=== PATIENT | female | born 1940 | race Caucasian/White ===

== ENCOUNTER 2019-02-07 08:58 | Inpatient (IN) | payer MEDICARE, SELFPAY ==
[2019-02-07] VITALS (9 sets, daily range): BP systolic 117–146; BP diastolic 67–85; PULSE 81–92; RESP 15–18; TEMP 36.6–37.4; O2SAT 93–100; BMI 16.0
--- NOTE | 2019-02-07 09:02 | ED.FALL ---
HPI - Fall General Chief Complaint: Fall Stated Complaint: GLF, Right leg pain Time Seen by Provider: 02/07/19 09:01 Source: patient and EMS Mode of arrival: EMS Limitations: no limitations History of Present Illness HPI Narrative: Patient is a 78-year-old female who presents after a ground level fall with right hip pain. She says she went to brush her hair when she fell down. No head injury she is not on any blood thinners or anti-platelet medication. She has pain every time she tries to move that leg. MD complaint: fall Onset (ago): minute(s) Fall from: standing Fall witnessed: no Place fall occurred: longterm/SNF Loss of consciousness: none Related Data Home Medications Medication Instructions Recorded Confirmed aspirin 325 mg PO DAILY #0 06/15/17 02/07/19 calcium carbonate [Tums] 500 mg PO DAILY #0 08/08/17 02/07/19 carbidopa-levodopa 1 tab PO TID 02/07/19 02/07/19 cholecalciferol (vitamin D3) 1,000 unit PO DAILY 02/07/19 02/07/19 [Vitamin D3] Allergies Allergy/AdvReac Type Severity Reaction Status Date / Time No Known Drug Allergies Allergy Verified 02/07/19 09:10 Review of Systems Review of Systems ROS Unobtainable: All systems reviewed & are unremarkable except as noted in HPI and below Constitutional Denies chills, Denies fever(s), Denies lethargy and Denies weakness Eyes Denies change in vision, Denies eye discharge, Denies irritation and Denies loss of vision ENT Ears, Nose, Mouth, and Throat: Denies change in voice, Denies neck pain and Denies sore throat Cardiovascular Denies chest pain, Denies irregular heart rhythm, Denies lightheadedness, Denies palpitations, Denies dyspnea, Denies dyspnea on exertion and Denies orthopnea Respiratory Denies cough, Denies dyspnea, Denies dyspnea on exertion and Denies wheezing Gastrointestinal Gastrointestinal: Denies abdominal pain, Denies change in bowel habits, Denies diarrhea, Denies nausea and Denies vomiting Musculoskeletal Reports as per HPI and Denies neck pain Integumentary/Breasts Denies pruritus, Denies erythema, Denies rash and Denies wounds Neurologic Denies loss of vision and Denies weakness Endocrine Denies palpitations Allergic/Immunologic Denies wheezing Exam Initial Vital Signs Initial Vital Signs: Vital Signs Pulse Rate 87 02/07/19 08:55 Respiratory Rate 18 02/07/19 08:55 Blood Pressure 117/69 02/07/19 08:55 Pulse Oximetry 94 02/07/19 08:55 GENERAL: Alert been elderly female HEENT: Head atraumatic,EOMI, pupils reactive, face symmetric CARDIOVASCULAR: Regular rate and rhythm without murmurs, rubs or gallops. RESPIRATORY: Breath sounds equal bilaterally, no wheezes rales or rhonchi. ABDOMEN: Soft, nontender. Normoactive bowel sounds all 4 quadrants. No guarding or rebound.s EXTREMITIES: Normal range of motion, no clubbing or edema. Neurovascularly intact Right hip pain. Supported underneath the knee peripheral pulses intact no significant internal external rotation. Pain to palpation NEUROLOGICAL: Alert and oriented x4.Normal gait and speech. Cranial nerves II through XII grossly intact. SKIN: Warm, dry, no laceration, no petechiae, no rashes or lesions. [facility] Medical History Parkinsons (Acute) Family History Father Heart disease Social History household members: other Smoking Status: Never smoker alcohol intake: never Family History Father Heart disease Social History household members: other Smoking Status: Never smoker alcohol intake: never Course Orders Ordered: ED Orders 02/07/19 09:01 XR hip w pel if done RT 2V Stat 02/07/19 09:50 EKG-12 Lead Stat 02/07/19 10:10 Consult to Orthopedic Surgery Stat 02/07/19 10:20 Complete Blood Count AUTO DIFF Stat Comprehensive Metabolic Panel Stat Partial Thromboplastin Time Stat Prothrombin Time INR Stat 02/07/19 10:45 UA Complete [Urinalysis and Microscopic] Stat Sodium Chloride (Normal Saline 0.9% Flush) 10 ml IV PRN PRN PRN Reason: Flush Sodium Chloride (Normal Saline 0.9% Flush) 10 ml IV BID MARYCHUY Discontinued Medications Morphine Sulfate (Morphine) 2 mg IV NOW ONE Stop: 02/07/19 09:37 Last Admin: 02/07/19 10:11 Dose: 2 mg Vital Signs - 8 hr 02/07/19 08:55 02/07/19 09:30 02/07/19 10:30 Temperature Pulse Rate 87 87 89 Respiratory Rate 18 16 18 Blood Pressure 117/69 143/85 H Blood Pressure [Left Arm] 132/74 Pulse Oximetry 94 97 100 02/07/19 11:15 Temperature 98.1 F Pulse Rate 92 H Respiratory Rate 16 Blood Pressure 146/80 H Blood Pressure [Left Arm] Pulse Oximetry 98 MDM - Fall Lab Data Attestation: I reviewed the patient's lab results. Result diagrams: 02/07/19 10:20 02/07/19 10:20 Lab Results 02/07/19 02/07/19 02/07/19 Range/Units 10:20 10:20 10:20 WBC 8.1 (4.5-11.0) X10^3/uL RBC 4.37 (4.0-5.2) X10^6/uL Hgb 13.1 (12.0-16.0) g/dL Hct 39.2 (36-46) % MCV 89.7 (80-100) fL MCH 30.0 (26-34) PG MCHC 33.4 (30-36) % RDW 14.4 (11.6-14.8) % Plt Count 267 (150-400) X10^3/uL Neut % (Auto) 81.5 H (50-75) % Lymph % (Auto) 12.9 L (25-40) % [place] % (Auto) 4.6 (3-14) % Eos % (Auto) 0.6 L (2-4) % Baso % (Auto) 0.4 (0-2) % Neut # (Auto) 6600 (9490-4806) /uL Lymph # (Auto) 1000 L (6677-6455) /uL [place] # (Auto) 400 (0-900) /uL Eos # (Auto) 100 (0-450) /uL Baso # (Auto) 0 (0-100) /uL PT 11.4 (10.1-12.7) SECONDS INR 1.0 (0.9-1.3) APTT 24 L (26.4-36.2) SECONDS Sodium 142 (137-145) mmol/L Potassium 3.9 (3.4-5.1) mmol/L Chloride 107 (98-107) mmol/L Carbon Dioxide 25 (22-32) mmol/L BUN 22 H (7-17) mg/dL Creatinine 0.60 (0.52-1.04) mg/dL Estimated GFR > 60.0 (>60) mL/min BUN/Creatinine Ratio 36.7 H (6-22) Glucose 101 (80-110) mg/dL Calcium 10.7 H (8.4-10.2) mg/dL Total Bilirubin 0.7 (0.2-1.3) mg/dL AST 26 (14-36) IU/L ALT 29 (9-52) IU/L Alkaline Phosphatase 56 (38-126) U/L Total Protein 7.6 (6.3-8.2) g/dL Albumin 4.3 (3.5-5.0) g/dL Globulin 3.3 (1.7-4.1) g/dL Albumin/Globulin Ratio 1.3 (1.0-2.8) Imaging Data hip right: Radiologist's impression: PROCEDURE: XR HIP W PEL IF DONE RT 2V INDICATIONS: pain fall TECHNIQUE: 2 views of the hip were acquired. COMPARISON: None. FINDINGS: Bones: No dislocations. There is an acute appearing subcapital femoral neck fracture, subluxed along the fracture plane superiorly by approximately 3 cm No suspicious bony lesions. The visualized pelvic ring appears intact. Soft tissues: No suspicious soft tissue calcifications or masses. IMPRESSION: Moderately displaced subcapital right femoral neck fracture. Dictated by: Haja Clemente M.D. on 02/07/2019 at 9:33 ECG Data Attestation: I personally reviewed and interpreted this ECG as follows: Prior ECG tracings: not available for review Interpretation: Normal sinus rhythm rate 84 appear interval [address] changes no T-wave inversions no priors to compare MDM Narrative Medical decision making narrative: Dr. Galloway notified and updated on patient's symptoms test results reviewed x-ray himself. Recommend keeping NPO unclear when surgery may be. Dr. Quiroga hospitalist of the patient's symptoms test results agrees admission Patient's DPOA and cousin at bedside. Aware and updated of patient's test results and need for surgery. Discharge Plan Departure Patient Disposition: Admitted As Inpatient Clinical Impression: Closed fracture of left hip Qualifiers: Encounter type: initial encounter Qualified Code(s): S72.002A - Fracture of unspecified part of neck of left femur, initial encounter for closed fracture Discharge Date/Time: 02/07/19 11:07 Interventions: ED Discharge Assessment Last Done: 02/07/19 10:30 Admit Date/Time: 02/07/19 10:39 Admit Provider: Mary Quiroga
[2019-02-07] MEDS: MORPHINE 2 MG/ML INJ IV ×2 (10:11→13:11)
[2019-02-07 10:28] LABS: Add Manual Diff / Slide Review NO; Basophils Absolute Auto 0 /uL (0-100); Basophils Percent Auto 0.4 % (0-2); Eosinophils Absolute Auto 100 /uL (0-450); Eosinophils Percent Auto 0.6 % (2-4); Hematocrit 39.2 % (36-46); Hemoglobin 13.1 g/dL (12.0-16.0); Lymphocytes Absolute Auto 1000 /uL (1100-4500); Lymphocytes Percent Auto 12.9 % (25-40); Mean Corpuscular HGB Conc 33.4 % (30-36); Mean Corpuscular Volume 89.7 fL (80-100); Monocytes Absolute Auto 400 /uL (0-900); Monocytes Percent Auto 4.6 % (3-14); Neutrophils Absolute Auto 6600 /uL (1500-7000); Neutrophils Percent Auto 81.5 % (50-75); Platelet Count 267 X10^3/uL (150-400); Red Blood Cell Count 4.37 X10^6/uL (4.0-5.2); Red Cell Distribution Width 14.4 % (11.6-14.8); White Blood Cell Count 8.1 X10^3/uL (4.5-11.0)
[2019-02-07 10:34] LABS: Prothrombin Time 11.4 SECONDS (10.1-12.7)
[2019-02-07 10:37] LABS: PTT Partial Thromboplastin Tim 24 SECONDS (26.4-36.2)
[2019-02-07 10:41] LABS: Alanine Aminotransferase 29 IU/L (9-52); Albumin 4.3 g/dL (3.5-5.0); Albumin Globulin Ratio 1.3 (1.0-2.8); Alkaline Phosphatase 56 U/L (38-126); Aspartate Aminotransferase 26 IU/L (14-36); BUN Creatinine Ratio 36.7 (6-22); Bilirubin Total 0.7 mg/dL (0.2-1.3); Blood Urea Nitrogen 22 mg/dL (7-17); Calcium 10.7 mg/dL (8.4-10.2); Carbon Dioxide 25 mmol/L (22-32); Chloride 107 mmol/L (98-107); Estimated Glomerular Filt Rate > 60.0 mL/min (>60); Globulin 3.3 g/dL (1.7-4.1); Glucose 101 mg/dL (80-110); HEMOLYSIS < 15 (0-50); Potassium 3.9 mmol/L (3.4-5.1); Sodium 142 mmol/L (137-145); Total Protein 7.6 g/dL (6.3-8.2)
--- NOTE | 2019-02-07 11:22 | PC.NURSE ---
Day shift: Pt on unit from ED at approx 1115.
[2019-02-07] MEDS: SODIUM CHLORIDE 0.9% FLUSH 10 ML IV ×2 (11:45→21:32)
--- NOTE | 2019-02-07 12:51 | P.HP_ITS ---
History of Present Illness Date Patient Seen: 02/07/19 Chief complaint: GLF, Right leg pain Narrative: The patient is an 78-year-old female who lives at [facility] who was coming her here today when she fell landing on her hip. She was evaluated in the emergency room and found to have a femoral neck fracture by report the patient was recently diagnosed with Parkinson's syndrome. She was started on low-dose Sinemet for this. The patient has had multiple falls. The falls typically occur in the morning. She is currently without complaint. She has no pain she denies shortness of breath chest pain, nausea, vomiting, headache or other symptoms. The patient was scheduled to see Dr. koroma today and unfortunately presented to the emergency room. She was seen in the emergency room and diagnosed with a right femoral neck fracture and is admitted to the hospital for definitive surgical treatment. Patient History Medical History Parkinsons (Acute) Family History Father Heart disease Social History household members: other Smoking Status: Never smoker alcohol intake: never Family & Social History Family History Father Heart disease Social History: household members other Prior Living Arrangements Assisted Living Safety & Behavioral: Feels Safe in Current Yes Environment Been Physically Hurt or No Threatened By a Person Suicidal Ideation Description None Suicide Plan Description No Plan Tobacco & Substance use: Smoking Status Never smoker alcohol intake never alcohol intake frequency 0-2 drinks per day Substance Use Type does not use Meds Home Medications Medication Instructions Recorded Confirmed Type aspirin 325 mg PO DAILY #0 06/15/17 02/07/19 History calcium carbonate [Tums] 500 mg PO DAILY #0 08/08/17 02/07/19 History carbidopa-levodopa 1 tab PO TID 02/07/19 02/07/19 History cholecalciferol (vitamin D3) 1,000 unit PO DAILY 02/07/19 02/07/19 History [Vitamin D3] Allergies Allergy/AdvReac Type Severity Reaction Status Date / Time No Known Drug Allergies Allergy Verified 02/07/19 09:10 Review of Systems Review of Systems All systems reviewed & are unremarkable except as noted in HPI and below Exam Vital Signs (past 8 hours): - 02/07/19 08:55 02/07/19 09:30 02/07/19 10:30 Temperature Pulse Rate 87 87 89 Respiratory Rate 18 16 18 Blood Pressure 117/69 143/85 H Blood Pressure [Left Arm] 132/74 Pulse Oximetry 94 97 100 02/07/19 11:15 Temperature 98.1 F Pulse Rate 92 H Respiratory Rate 16 Blood Pressure 146/80 H Blood Pressure [Left Arm] Pulse Oximetry 98 Oxygen Delivery Method Room Air Oxygen Flow Rate 0 Narrative Exam Narrative: Elderly female lying in bed in no obvious distress HEENT: Normocephalic atraumatic extraocular muscles are intact oropharynx reveals dry mucous members neck is supple there is mild nontender left anterior cervical adenopathy Lungs clear to auscultation Cardiac exam regular rate rhythm normal S1-S2 with a 2/6 systolic ejection murmur Abdomen: Soft nontender nondistended Extremities: No edema, right leg is shortened and externally rotated Neuro exam the patient's cranial nerves are intact her strength is symmetric and equal in the upper extremity she can lift the left lower extremity sensation is intact reflexes are decreased but he gait is not assessed, the patient has a contracture of the right hand Psychiatric patient is awake and alert appears to understand and responds appropriate speech is fluent Objective Labs Result Diagrams: 02/07/19 10:20 02/07/19 10:20 Labs: Laboratory Results - last 24 hr 02/07/19 02/07/19 02/07/19 10:20 10:20 10:20 WBC 8.1 RBC 4.37 Hgb 13.1 Hct 39.2 MCV 89.7 MCH 30.0 MCHC 33.4 RDW 14.4 Plt Count 267 Neut % (Auto) 81.5 H Lymph % (Auto) 12.9 L [place] % (Auto) 4.6 Eos % (Auto) 0.6 L Baso % (Auto) 0.4 Neut # (Auto) 6600 Lymph # (Auto) 1000 L [place] # (Auto) 400 Eos # (Auto) 100 Baso # (Auto) 0 PT 11.4 INR 1.0 APTT 24 L Sodium 142 Potassium 3.9 Chloride 107 Carbon Dioxide 25 BUN 22 H Creatinine 0.60 Estimated GFR > 60.0 BUN/Creatinine Ratio 36.7 H Glucose 101 Calcium 10.7 H Total Bilirubin 0.7 AST 26 ALT 29 Alkaline Phosphatase 56 Total Protein 7.6 Albumin 4.3 Globulin 3.3 Albumin/Globulin Ratio 1.3 Assessment & Plan Assessment & Plan narrative: 1. 78-year-old female status post ground level fall here with a right femoral neck fracture. Suspect fracture related to underlying osteoporosis. Patient is awaiting definitive surgical treatment. She will be evaluated by Dr. Galloway, surgery scheduled for tomorrow morning. We will hold her calcium and vitamin-D at this time. Will resume osteoporotic treatment postoperatively. The patient will be placed on subcu heparin for prophylaxis. Will defer to surgery for postoperative DVT prophylaxis. 2. Osteoporosis, will defer treatment until outpatient setting 3. Parkinson disease continue carbidopa levodopa Disposition: Anticipate need for significant discharge. Consult PT OT and case management for disposition plan Patient power of assistant professor nurse education is at the bedside and notes that she is DNR 1 note that her record accordingly. Quality VTE Deep Vein Thrombosis/Pulmonary Embolism Present on Admission: No
[2019-02-07] MEDS: DEXTROSE 5%-0.45NS W/KCL 40MEQ 1,000 ML 84 MEQ IV (13:20)
[2019-02-07 14:42] LABS: Add Manual Diff / Slide Review NO; Basophils Absolute Auto 0 /uL (0-100); Basophils Percent Auto 0.3 % (0-2); Eosinophils Absolute Auto 0 /uL (0-450); Eosinophils Percent Auto 0.2 % (2-4); Hematocrit 38.7 % (36-46); Hemoglobin 12.7 g/dL (12.0-16.0); Lymphocytes Absolute Auto 800 /uL (1100-4500); Lymphocytes Percent Auto 7.5 % (25-40); Mean Corpuscular HGB Conc 32.7 % (30-36); Mean Corpuscular Hemoglobin 29.4 PG (26-34); Mean Corpuscular Volume 89.9 fL (80-100); Monocytes Absolute Auto 600 /uL (0-900); Monocytes Percent Auto 5.5 % (3-14); Neutrophils Absolute Auto 9100 /uL (1500-7000); Neutrophils Percent Auto 86.5 % (50-75); Platelet Count 262 X10^3/uL (150-400); Red Cell Distribution Width 14.1 % (11.6-14.8); White Blood Cell Count 10.5 X10^3/uL (4.5-11.0)
--- NOTE | 2019-02-07 14:51 | PT.IPTN ---
Surgery Performed Operation Date: 02/08/19 07:45 <No data on this case meets the specified criteria> Physical Therapy Treatment Note M3 PT-IP Subjective Start: 02/07/19 14:50 Freq: NEEDED Status: Active Protocol: Document 02/07/19 14:50 AB (Rec: 02/07/19 14:51 AB [id number]) Subjective Physical Therapy Visit Type Notes hold PT eval order until after surgery. pt has R hip fracture and awaiting surgery.
[2019-02-07 15:19] LABS: Blood Urea Nitrogen 21 mg/dL (7-17); Carbon Dioxide 26 mmol/L (22-32); Chloride 107 mmol/L (98-107); Estimated Glomerular Filt Rate > 60.0 mL/min (>60); Glucose 128 mg/dL (80-110); HEMOLYSIS < 15 (0-50); Potassium 3.7 mmol/L (3.4-5.1); Sodium 141 mmol/L (137-145)
--- NOTE | 2019-02-07 15:23 | DIET.PN ---
Dietary Progress Note Assessment: 78 y F referred to nutrition for MNA score 9 r/t low BMI (16) Pt and cousin, Gabriella, in room. Pt had good recall re: usual body weight, usual dietary intake. B: raisin bran, oj no lunch D: 1/2 turkey sandwich on wheat c enciso, tomato, lettuce, cheese c chips and skim milk not a snacker Has been 100# most adult life, reports no recent weight loss or loss of appetite. Because of low BMI, consider PCM dx if we can get a recent recorded body weight showing 5% loss in 1 mo, 10% in 6 mo. HT: 154.9cm WT: 38.5kg UBW: 45kg most of adult life BMI: 16.0 (severe for age) Labs: Ca2+ 10.7 (H) Interventions: Encouraged pt to eat three meals per day or two meals with small snack(s) to support weight maintenance or gain. Pt did not want ONS or yogurt. Monitoring/Evaluations: wt, diet tolerance I&Os
--- NOTE | 2019-02-07 18:12 | PC.NURSE ---
Wound Nurse Consult Note Citlalli in bed. Her friends and family recently left after helping to feed her. Frieda and I rotated Citlalli with the bed tilt and assessed her Pressure Injury on her Right Hip. She has a Right Femur Head fracture which will be operated on tomorrow. Citlalli had a band aid on the area. We removed it and took a photo. I was able to remove some scab and we re-photoed the area. This is a Stage 3 PI. There was some slough which I was able to remove. The wound measures 0.3x 0.4x 0.1. The kelsey-wound is dry and slightly discolored ( bruised) but blanchable. The wound edges are attached without any undermining or tunneling. She does have pain but this may be due to the fracture. The wound base has red granulation tissue. The drainage was dry and was removed. We placed a 3x3 Allevyn border foam. Citlalli tolerated the procedure.
--- NOTE | 2019-02-07 20:16 | PC.NURSE ---
Addendum entered by Lona Souza R.N. 02/07/19 20:29: Pressure Injury to right hip Present on Admission (POA) Original Note: Coco shift note: During assessment, family at bedside notified this RN regarding a band aid the patient has to right hip for some unknown time. Patient was reluctant for this RN to remove band aid but agreed. Upon removal noted a pressure injury to lateral right hip, measuring 0.3 x 0.4 x 0.1 with surrounding tissue discolored. (please see wound care nurse note/photo for further details) Made Dr. Quiroga aware of finding and location. Wound care consult made. Andreina Ramos dressed wound and photo obtained. Repositioning frequently for pressure off loading, while using precaution on right hip fracture. Will continue to monitor closely
[2019-02-07 20:43] LABS: Bacteria Urine None Seen; RBC Urine None Seen (0-5/HPF)
[2019-02-07 20:50] LABS: Appearance Urine UA CLEAR; Bilirubin Urine UA NEGATIVE (NEGATIVE); Color Urine UA YELLOW; Glucose Urine UA NEGATIVE (Negative); Ketones Urine UA TRACE (NEGATIVE); Leukocyte Esterase Urine UA NEGATIVE (NEGATIVE); Nitrite Urine UA NEGATIVE (Negative); Occult Blood Urine UA NEGATIVE (Negative); Protein Urine UA NEGATIVE (Negative)
[2019-02-07 20:59] LABS: Culture Indicated Urine Specimen Cultured; Mucus Urine 1+ (Negative); Squamous Epithelial Cell Urine None Seen (0-5/HPF); WBC Urine 5-10/HPF (0-5/HPF)
[2019-02-07] MEDS: CARBIDOPA-LEVODOPA 25/100 TABLET 1 EACH PO (21:31)
[2019-02-07] MEDS: HEPARIN 5,000 UNIT/ML VIAL 5000 UNIT SUBCUT (21:31)
[2019-02-07] MEDS: DOCUSATE 100 MG CAPSULE PO (21:31)
[2019-02-08] VITALS (19 sets, daily range): BP systolic 90–131; BP diastolic 53–79; PULSE 71–88; RESP 10–28; TEMP 36–37.2; O2SAT 92–98; BMI 16.4
[2019-02-08] MEDS: DEXTROSE 5%-0.45NS W/KCL 40MEQ 1,000 ML 84 MEQ IV (00:48)
--- NOTE | 2019-02-08 03:40 | PC.NURSE ---
Addendum entered by Darlene Oliver R.N. 02/08/19 07:27: Pt given 2mg Morphine at 0653, went down to surgery at 0653. Family was at her side. Original Note: Pt Axox3, lung sounds clear bilaterally, VSS. Pt denies pain. Pt is NPO as of 0000. Pt is on tele: NS.
[2019-02-08] MEDS: MORPHINE 2 MG/ML INJ IV (06:55)
[2019-02-08] MEDS: LACTATED RINGERS 1,000 ML 42 ML IV ×2 (07:16→09:45)
--- NOTE | 2019-02-08 07:40 | PC.NURSE ---
Day shift: Pt not on AC unit at this time. Hip surgery OR. Off unit at approx 0650 per NOC RN.
--- NOTE | 2019-02-08 07:44 | PM.PREOP ---
Pre-operative Note Interval Note History & Physical reviewed/Exam performed by Physician: Yes Changes to H&P: No
--- NOTE | 2019-02-08 07:44 | PM.OP.1 ---
Operative Date/Time/Diagnoses Date of procedure: 02/08/19 Time of procedure: 09:44 Pre-op diagnosis: Displaced right femoral neck fracture Post-op diagnosis: same Procedure & Clinicians Procedure: Right hip hemiarthroplasty Same procedure as scheduled: Yes Indications: The patient is an 78-year-old woman who presents today for right hip hemiarthroplasty for a displaced femoral neck fracture. The nature of the procedure including the risks, benefits, alternatives, postoperative course and expected outcome were discussed and all questions answered. Informed consent was obtained. The operative site was confirmed and marked. Surgeon: Solomon Galloway Tail Edger: Shannan Varela Anesthesia Type: General and Spinal Operative Notes Findings: Displaced femoral neck fracture. Adequate bone quality. Closure Type: primary Specimen(s): none sent Prosthetic devices, grafts, tissues, transplants, or devices: [employer] Synergy 12. Porous stem, 48 mm unipolar head with +0 neck Applied: implant(s) Estimated Blood Loss (mL): 50 Blood products transfused: none Procedure in detail: The patient was taken operative suite and placed under general anesthesia as well as given a spinal by Anesthesia. She was given 2 g of Ancef prior to surgery. She was then placed in the lateral position with a hip securities broker positioner. The patient did have a small abrasion on the posterior trochanter from her fall. This was just partial thickness with no evidence of infection. The entire leg was prepped and then a separate prep applicator was used to prep over the abrasion. The abrasion was about 3 cm posterior to the proposed incision. The leg was then prepped and draped usual sterile fashion including a 3 mm plastic drape over the wound covering the abrasion. A 10 cm incision was made centered just posterior to the midline of the greater trochanter. Electrocautery was used to dissect through the subcutaneous tissue and obtained hemostasis. Tensor fascia elvi was then split in line with the incision and retracted. The hip was internally rotated to put the piriformis and external rotators on stretch. The piriformis was identified cut and tagged. The short external rotators were then excised and the capsule exposed. The capsule was then T'd. The neck cut was made using the guide and the femoral head removed. The femoral head was measured to a size 42. The 42 head was then trialed in the acetabulum and had excellent fit. The proximal femur was then prepared with reaming and sequential broaching to a 12 prosthesis which had excellent fit. The final 12 porous fit prosthesis was then placed. Trial reduction was then performed. The patient had a stable hip with good buddhist of leg length with a +0 neck length. The final head was placed and the hip reduced. The wound was copiously irrigated. The capsule was repaired with Ethibond suture. The piriformis was then reattached posteriorly into the soft tissue around the greater trochanter. Tensor fascia elvi was closed with interrupted 1. Ethibond sutures. Subcutaneous tissue closed with 2 O Vicryl. The skin was closed with jonatan. A Tegaderm was placed over the abrasion. The wound was then dressed with an Aquacel dressing. The patient tolerated procedure well and was returned to recovery room in good condition. Complications: none Condition: stable Disposition: PACU Plan for aftercare: The patient will be weight-bearing as tolerated with posterior hip precautions. Plan discharge to intermediate facility when stable.
[2019-02-08] MEDS: CEFAZOLIN 2 GM/100 ML FROZ.PIGGY IV ×3 (08:05→23:47)
--- NOTE | 2019-02-08 08:38 | OT.IP.TRT ---
Surgery Performed Operation Date: 02/08/19 07:45 <No data on this case meets the specified criteria> Occupational Therapy Treatment Note M3 OT- IP Subjective and Pain Start: 02/08/19 08:37 Freq: Status: Active Protocol: Document 02/08/19 08:37 CGR (Rec: 02/08/19 08:38 CGR [id number]) OT- Subjective Occupational Therapy Visit Type Type Administrative Note Notes Pt down for sx at this time. Will hold and see s/p surgery.
--- NOTE | 2019-02-08 08:45 | SUR.OPER ---
Lateral on padded OR bed. Gel axillary roll. Arms secured on padded armboard with pillow supporting top arm. Padded hip positioner braces x4 - anterior and posterior chest and pelvis. Additional gel pad used anterior pelvis. Gel pad under bottom leg from knee to foot and secured with tape over sheet.
[2019-02-08] MEDS: TRANEXAMIC ACID 1,000 MG VIAL 2000 MG INJ (08:52)
--- NOTE | 2019-02-08 09:12 | PC.NURSE ---
Day shift: Pty remains off of AC unit at this time.
--- NOTE | 2019-02-08 10:09 | SUR.PHASEI ---
0937 late entry To PACU; sleeping, resp even and regular; oral airway dc'd prior to arrival. Skin warm and dry. Pillow between knees, Zepeda cath patent. 1012 Continues sleeping, resp even and regular; Stable VS, resp unlabored. Skin warm and dry. No changes
--- NOTE | 2019-02-08 10:19 | SUR.PHASEI ---
Pt continues to sleep, have not tured to assess buttock skin.
--- NOTE | 2019-02-08 10:24 | SUR.PHASEI ---
Pictures documenting buttock and hip skin condition were taken in the OR . COMPLIANCE INTERN attempted to scan them into the computer, but the images were of poor quality. Note added to bottom of the pics that they were taken in the OR and initialed by myself. I was not present in the room. Pt. responsive to voice, denies pain/nausea. See documentation
--- NOTE | 2019-02-08 10:44 | PC.NURSE ---
Day shift: Pt back on AC unit at approx 1045.
--- NOTE | 2019-02-08 10:48 | SUR.PHASEI ---
1039 TO 206, bed down and locked, call light within reach, SCD's on, Dressing remains CDI; report given. VSS. Patient tolerated ice chips well and denies pain or nausea. Stable.
--- NOTE | 2019-02-08 10:49 | PT.IIE ---
Surgery Performed Operation Date: 02/08/19 07:45 Actual Procedures p Hip Hemiarthroplasty Neel femoral neck fracture(Right) - Solomon Galloway MD Medical History (Last Reviewed 02/07/19 @ 12:47 by Mary Quiroga MD) Parkinsons (Acute) Physical Therapy Inpatient Evaluation/Re-Eval M3 PT-IP Subjective Start: 02/07/19 14:50 Freq: NEEDED Status: Active Protocol: Document 02/08/19 08:30 (Rec: 02/08/19 10:49 [id number]) Subjective Physical Therapy Visit Type Type Administrative Note Visit Start Time 08:30 Notes Pt is undergoing sx at this time. Hold PT eval order until after surgery.
[2019-02-08] MEDS: LACTATED RINGERS 1,000 ML 125 ML IV (11:07)
--- NOTE | 2019-02-08 13:42 | CM.DANOTE ---
Addendum entered by María Vasquez LPN 02/08/19 14:27: [facility] accepts pt and will start the snf auth process today. Addendum entered by María Vasquez LPN 02/08/19 14:18: Spoke with Gabriella just now. They are both pleased with [facility] and their meeting with December. She says we are so relived to have a good plan in place. Checked in with December/ she noted tour went well but she had not yet reviewed case/acceptance is still pending. She will have an answer this afternoon. Original Note: Discharge Planning/Care Management DCP: assessment: case received, EMR reviewed and met in pt's room with her family members: cousins Gabriella Wolff/JANA and Gabriella's sister Khadijah. PT had just returned from surgery so did not particiapte in the discussion. Pt is an 78 year old female who has lived at [facility] for 5 years. She fell, fractured her R hip and was taken to OR this morning for a RTHA. She admitted to care of hospitalist team yesterday and orthopedic team consulted. Admission status: INPT: confirmed by [facility] CRISSY Dye. Payer: [facility]. PCP: Dr. Stan Mandujano: [facility] Gabriella and Khadijah note that pt was diagnosed about 3 months ago with Parkinson's disease and that her functional abilities had been slowly deteriorating. They realize snf rehab will be needed and with a plan to have pt return to [facility] with private caregiver support if needed. They note that pt has been single all her life, lived with her mother until mother's . 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 After mother's she moved into a longterm setting. They say she seems to do best in a structured environment. They both confirm that pt never had a specific diagnosis but say her adult behaviors seem to suggest she may be somewhere on the autism spectrum. SNF choice list: provided with specific network facilities noted: [facility], [facility] and [facility]). Decision: [facility] if accepted/they have both now gone to tour and will update this DCplanner when they return. Referral: to December/in review. Insurance authorization will be needed and will be obtained by the snf. Plan B would be consideration of [facility]. No referral in yet as if [facility] accepts case it is best to only have one snf at a time attempting to obtain auth with insurance provider. P: SNF, pending acceptance, pending insurance auth. PASRR: will be needed. CM Discharge Assessment Start: 02/08/19 13:38 Freq: Status: Active Protocol: Document 02/08/19 13:38 ITV (Rec: 02/08/19 13:42 ITV [id number]) Discharge Planning Assessment Advance Directives? Yes: Gabriella will bring in to hospital Advance Directives on File No History Provided By Family Member Medical Record Prior Living Arrangements Assisted Living Type of transporation used prior to Relies on Others admit Facility Name Admitted From: [facility] Willing to Return to Facility? Yes Independent with ADL's No Is patient alert and oriented? Yes: per family: Khadijah and Gabriella/JANA Patient/Family Preference Long Term Facility Medicare Choice List Provided Yes Has Agency SNF been contacted Yes Whiteboard Updated in Patient Room with Yes name and ext. # of Fixed Route Bus Operator Review Status In Process
--- NOTE | 2019-02-08 14:21 | PM.PN.1 ---
Subjective Date Patient Seen: 02/08/19 Interval history: Patient is an 78-year-old female with a history of Parkinson's disease who had a ground level fall yesterday suffering a a right hip fracture. She is status post right hemiarthroplasty. Patient reports a minimal oral intake. She denies any significant pain. She has no shortness of breath. Exam Vital Signs (past 8 hours): - 02/08/19 07:05 02/08/19 09:36 02/08/19 09:41 Temperature 98.8 F 98.1 F Pulse Rate 82 84 79 Respiratory Rate 14 16 13 Blood Pressure 117/72 108/55 L 94/56 L Pulse Oximetry 92 98 96 02/08/19 09:46 02/08/19 09:51 02/08/19 09:56 Temperature Pulse Rate 76 78 74 Respiratory Rate 11 L 11 L 10 L Blood Pressure 90/55 L 100/53 L 98/56 L Pulse Oximetry 94 96 92 02/08/19 10:11 02/08/19 10:26 02/08/19 10:36 Temperature Pulse Rate 71 79 78 Respiratory Rate 10 L 12 17 Blood Pressure 100/61 93/56 L 105/56 L Pulse Oximetry 93 92 92 02/08/19 10:48 02/08/19 11:21 02/08/19 12:40 Temperature 96.8 F L 97.7 F 97.5 F L Pulse Rate 74 74 74 Respiratory Rate 14 14 13 Blood Pressure 116/69 120/66 120/68 Pulse Oximetry 97 97 95 Oxygen Delivery Method Room Air Oxygen Flow Rate 1 Narrative Exam Narrative: Pleasant female in no acute distress Lungs: Clear to auscultation Cardiac exam: Regular rate and rhythm normal S1-S2 Abdomen: Soft nontender nondistended Extremities: Right hip with dressing in place no oozing. No lower extremity edema Objective Labs Result Diagrams: 02/07/19 14:20 02/07/19 14:20 Labs: Laboratory Results - last 24 hr 02/07/19 02/07/19 02/07/19 14:20 14:20 20:42 WBC 10.5 RBC 4.30 Hgb 12.7 Hct 38.7 MCV 89.9 MCH 29.4 MCHC 32.7 RDW 14.1 Plt Count 262 Neut % (Auto) 86.5 H Lymph % (Auto) 7.5 L [place] % (Auto) 5.5 Eos % (Auto) 0.2 L Baso % (Auto) 0.3 Neut # (Auto) 9100 H Lymph # (Auto) 800 L [place] # (Auto) 600 Eos # (Auto) 0 Baso # (Auto) 0 Sodium 141 Potassium 3.7 Chloride 107 Carbon Dioxide 26 BUN 21 H Creatinine 0.50 L Estimated GFR > 60.0 BUN/Creatinine Ratio 42.0 H Glucose 128 H Calcium 10.0 Urine Color Yellow Urine Appearance Clear Urine pH 7.0 Ur Specific [place] 1.020 Urine Protein Negative Urine Glucose (UA) Negative Urine Ketones Trace H Urine Occult Blood Negative Urine Nitrate Negative Urine Bilirubin Negative Urine Urobilinogen 1.0 Ur Leukocyte Esterase Negative Urine RBC None seen Urine WBC 5-10/hpf H Ur Squamous Epith Cells None seen Urine Bacteria None seen Urine Mucus 1+ H Ur Culture Indicated? Specimen cultured Assessment & Plan Assessment & Plan narrative: 1. 78-year-old female status post ground level fall here status post right hip hemiarthroplasty 2. Osteoporosis 3. Parkinson's disease Plan continue pain medication PT OT per surgery. Will continue her Sinemet as previously prescribed. Patient will need a sniff at discharge and arrangements are currently being made for that. Quality VTE Deep Vein Thrombosis/Pulmonary Embolism Present on Admission: No
--- NOTE | 2019-02-08 15:20 | PT.IIE ---
Current Diagnoses Other osteoporosis with current pathological fracture, right femur, initial encounter for fracture (02/07/19) Surgery Performed Operation Date: 02/08/19 07:45 Actual Procedures p Hip Hemiarthroplasty Neel femoral neck fracture(Right) - Solomon Galloway MD Medical History (Last Reviewed 02/07/19 @ 12:47 by Mary Quiroga MD) Parkinsons (Acute) Physical Therapy Inpatient Evaluation/Re-Eval M1 PT/OT-IP Prior Functional Status Start: 02/08/19 08:37 Freq: NEEDED Status: Active Protocol: Document 02/08/19 14:15 IJS (Rec: 02/08/19 15:20 IJS [email or web address]) Medical Review Prior Functional Status Medical History Reviewed Yes Communication Patient speaks british but is not very conversant. Mobility and Gait Use of 4 wheeled walker for short distance in her room and to the elevator for meals downstairs. History of falls. Activities of Daily Living and IADL's Requires assist for all ADL's Prior Functional Level (Other details) Lives at [facility] - recent diagnosis of Parkinson's. Social History Household Members caregiver other Living Arrangements Apartment/Condo Number of Floors (Floors) Two Floors Number of Stairs To Enter/Railing? 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 Equipment Four Wheel Walker Employment Status Unemployed Additional Social History Comment Supportive family M2 PT-IP Current Condition Start: 02/07/19 14:50 Freq: NEEDED Status: Active Protocol: Document 02/08/19 14:15 IJS (Rec: 02/08/19 15:20 IJS [email or web address]) Physical Therapy Current Condition Current Condition Evaluation Date 02/08/19 Treatment Diagnosis Right HANSEL - posterior, walking /gait disturbance Onset Date 02/08/19 Precautions Posterior Hip Precautions No Hip Flexion > 90 degrees No Hip Internal Rotation No Hip Adduction Weight Bearing Status Weight Bearing Status Weight Bear as Tolerated M3 PT-IP Subjective Start: 02/07/19 14:50 Freq: NEEDED Status: Active Protocol: Document 02/08/19 14:15 IJS (Rec: 02/08/19 15:20 IJS [email or web address]) Subjective Physical Therapy Visit Type Type Initial Evaluation Visit Start Time 14:15 Visit Stop Time 14:43 Total Visit Minutes 28 Number of DIESEL ROLLER OPERATOR Visits 0 Physical Therapy Visit Comments Patient Comments Per family she has a high pain tolerance, agrees to work with PT. Patient Goals Unclear but likely to return home to [facility] after SNF rehab. Therapy Pain Assessment Pain When Pain Assessed During Mobility Location Right Hip Scale Used Reports a little with mobility M4 PT-IP Mobility and Gait Start: 02/07/19 14:50 Freq: NEEDED Status: Active Protocol: Document 02/08/19 14:15 IJS (Rec: 02/08/19 15:20 IJS [email or web address]) PT-Bed Mobility Assessment Supine to Sit Supine to Sit Moderate Assistance Maximum Assistance 1 Person Assistance Scooting Scooting to Edge of Bed Moderate Assistance Scooting Up and Down in Bed Maximum Assistance PT-Transfer Assessment Sit to and From Stand Sit to and from Stand Minimal Assistance Equipment Transfer Assistive Device Gait Belt Front Wheeled Walker Orthotic/Prosthetic Devices or Brace: No Transfers Transfer Destination Bed Chair Transfer Technique Stand Step Pivot Transfer Ability Level of Assist Minimal Assistance Comments Mobility Comments Lots of verbal cues needed and physical assist to avoid right hip internal rotation during bed mobility and transfer. Gait Assessment Gait Gait Assistance Required: Minimum Assistance Distance (Feet) 5 Able to Maintain Weight Bearing Status Yes During Gait Assistive Devices Assistive Device Gait Belt Front Wheeled Walker Orthotic/Prosthetic Devices or Brace: No Gait Deviations General Gait Pattern Decreased Stride Length Decreased Feet Clearance Narrow Based Gait Step-to Gait Factors Limiting Gait Function Factors Limiting Gait Function Decreased Activity Tolerance Incoordination Poor Safety Awareness Comments Gait Comments Not festinating gait but has small stide length, takes time to get moving and v. cues needed. PT-Balance Assessment Sitting Balance and Reactions Static Sitting Balance Ability Good Dynamic Sitting Balance Ability Fair Standing Balance and Reactions Static Standing Balance Ability Good Dynamic Standing Balance Ability Fair M5 PT-IP Objective Assessments Start: 02/07/19 14:50 Freq: NEEDED Status: Active Protocol: Document 02/08/19 14:15 IJS (Rec: 02/08/19 15:20 IJS [email or web address]) Orientation Orientation/Cognition Level of Alertness Alert Orientation Name Language Function Ability No Deficits Noted Safety Awareness Decreased Safety Awareness Comments Reviewed hip precautions but doubtful she will remember them. Gross Range of Motion Upper Extremity ROM Assessment Right Impaired Impairments Has contrctures of the right hand, it stay in a fist. Lower Extremity ROM Assessment Right Impaired Impairments Per HANSEL protocal Strength Upper Extremity Strength Assessment Within Functional Limits Lower Extremity Strength Assessment Within Functional Limits Comments Strength Comments Weak appearing and fraile looking but can move against gravity Coordination Assessment Gross Coordination Gross Coordination Impaired Assessment Coordination Comments Cues needed for hand placement and challenges from the Parkinsons Sensation Assessment Sensation Gross Sensation WNL Light Touch Intact Muscle Tone Muscle Tone WNL Yes M6 PT-IP Treatment Start: 02/07/19 14:50 Freq: NEEDED Status: Active Protocol: Document 02/08/19 14:15 IJS (Rec: 02/08/19 15:20 IJS [email or web address]) Physical Therapy Treatment Exercises Exercises Ankle Pumps Quad Sets Heel Slides Short Arc Quads Education Education Provided Precautions Other Treatments Other Treatment Performed Bed exercises AA and up to recliner chair. M7 PT-IP Assessment and Plan Start: 02/07/19 14:50 Freq: NEEDED Status: Active Protocol: Document 02/08/19 14:15 IJS (Rec: 02/08/19 15:20 IJS [email or web address]) PT Summary Assessment and Plan Potential Rehabilitation Potential Good Status of Condition at Evaluation Stable Summary Impairments Balance Coordination Bed Mobility Transfers Gait Activity Tolerance Assessment Summary 78 year old fraile lady who will answer yes, no questions but is not very conversant even at baseline. She has an IV, aguiar and is on tele. She tends to want to internally rotate her right hip with mobility. She is low complexity with the right leg in neutral alignment and equal length while supine. Tolerated mobility well with 02 sat at 95% on RA after mobility. She will benefit from skilled PT to improve her ease of mobility and improve her gait. She will benefit from SNF for strength and mobility, balance prior to returning to [facility]. Goals Bed Mobility Goal Contact Guard Assistance Transfer Goal Contact Guard Assistance Gait Goal Contact Guard Assistance Gait Distance 100 Frequency of Treatment Frequency Of Treatment Twice a Day Treatment Plan Physical Therapy Treatment Plan Bed Mobility Training Transfer Training Gait Training Therapeutic Exercise Balance Retraining Post Op Education Discharge Planning Other Recommendations and Next Treatment Continue to focus on mobility Focus and gait - reminders for precautions needed. Recommendations To Nursing Amount of Assist Needed 1 Person Assist Discharge Recommendations PT Discharge Recommendations SNF Rehab
[2019-02-08] MEDS: CARBIDOPA-LEVODOPA 25/100 TABLET 1 EACH PO ×2 (15:38→21:08)
[2019-02-08] MEDS: ACETAMINOPHEN 325 MG TABLET 975 MG PO ×2 (16:22→21:08)
[2019-02-08] MEDS: LACTATED RINGERS 1,000 ML 100 ML IV (16:24)
[2019-02-09 04:40] VITALS: BP 124/61; PULSE 86; RESP 18; TEMP 36.8; O2SAT 94
[2019-02-09] MEDS: LACTATED RINGERS 1,000 ML 100 ML IV (05:03)
[2019-02-09 05:23] LABS: Add Manual Diff / Slide Review NO; Basophils Absolute Auto 0 /uL (0-100); Basophils Percent Auto 0.2 % (0-2); Eosinophils Absolute Auto 0 /uL (0-450); Eosinophils Percent Auto 0.5 % (2-4); Hematocrit 34.8 % (36-46); Hemoglobin 11.5 g/dL (12.0-16.0); Lymphocytes Absolute Auto 1100 /uL (1100-4500); Lymphocytes Percent Auto 11.8 % (25-40); Mean Corpuscular Hemoglobin 29.7 PG (26-34); Monocytes Absolute Auto 800 /uL (0-900); Monocytes Percent Auto 8.6 % (3-14); Neutrophils Absolute Auto 7400 /uL (1500-7000); Neutrophils Percent Auto 78.9 % (50-75); Platelet Count 220 X10^3/uL (150-400); Red Blood Cell Count 3.87 X10^6/uL (4.0-5.2); Red Cell Distribution Width 14.2 % (11.6-14.8); White Blood Cell Count 9.4 X10^3/uL (4.5-11.0)
[2019-02-09 05:37] LABS: Blood Urea Nitrogen 12 mg/dL (7-17); Carbon Dioxide 25 mmol/L (22-32); Chloride 105 mmol/L (98-107); Estimated Glomerular Filt Rate > 60.0 mL/min (>60); Glucose 117 mg/dL (80-110); HEMOLYSIS < 15 (0-50); Potassium 4.4 mmol/L (3.4-5.1); Sodium 137 mmol/L (137-145)
[2019-02-09 08:00] VITALS: BP 131/63; PULSE 82; RESP 15; TEMP 37; O2SAT 96
[2019-02-09] MEDS: ACETAMINOPHEN 325 MG TABLET 975 MG PO ×3 (08:27→20:08)
[2019-02-09] MEDS: CARBIDOPA-LEVODOPA 25/100 TABLET 1 EACH PO ×3 (08:27→19:55)
[2019-02-09] MEDS: MELOXICAM 7.5 MG TABLET 15 MG PO (08:28)
[2019-02-09] MEDS: ENOXAPARIN 30 MG/0.3 ML SYRINGE SUBCUT (08:35)
--- NOTE | 2019-02-09 09:12 | P.PN_ITS ---
Subjective Date Patient Seen: 02/09/19 Interval history: The patient is an 78-year-old female with a history of Par kinson's syndrome who had a ground level fall. Patient suffered a right leg intertrochanteric fracture. She is status post total hip replacement patient denies any pain. She has no shortness of breath. And no nausea. She was noted to have a poor appetite. However she is able to eat about 50% of her meals. The patient was a maximum 2 person assist. She will continue with physical therapy. Exam Vital Signs (past 8 hours): - 02/09/19 04:40 Temperature 98.2 F Pulse Rate 86 Respiratory Rate 18 Blood Pressure 124/61 Pulse Oximetry 94 Oxygen Delivery Method Room Air Oxygen Flow Rate 1 Narrative Exam Narrative: Elderly debilitated female in no obvious distress Lungs: Clear to auscultation Cardiac exam: Regular rate rhythm normal S1-S2 Abdomen: Soft and nontender Hip: Right hip with dressing in place Extremities: No edema Objective Labs Result Diagrams: 02/09/19 05:14 02/09/19 05:14 Labs: Laboratory Results - last 24 hr 02/09/19 02/09/19 02/09/19 05:14 05:14 05:14 WBC 9.4 RBC 3.87 L Hgb 11.5 L Cancelled Hct 34.8 L Cancelled MCV 90.0 MCH 29.7 MCHC 33.0 RDW 14.2 Plt Count 220 Neut % (Auto) 78.9 H Lymph % (Auto) 11.8 L [place] % (Auto) 8.6 Eos % (Auto) 0.5 L Baso % (Auto) 0.2 Neut # (Auto) 7400 H Lymph # (Auto) 1100 [place] # (Auto) 800 Eos # (Auto) 0 Baso # (Auto) 0 Sodium 137 Potassium 4.4 Chloride 105 Carbon Dioxide 25 BUN 12 Creatinine 0.50 L Estimated GFR > 60.0 BUN/Creatinine Ratio 24.0 H Glucose 117 H Calcium 10.0 Assessment & Plan Assessment & Plan narrative: 1. Year old female status post ground level fall having suffered a right intertrochanteric fracture. Patient is status post total hip replacement. 2. Probable osteoporosis 3. Parkinson's syndrome 4. Poor appetite Plan is will DC organic preparation analyst today, will DC IV fluids and continue to monitor oral intake. Will continue with physical therapy and occupational therapy anticipating [facility] within a day or so. Patient will continue on her usual home medications Quality VTE Deep Vein Thrombosis/Pulmonary Embolism Present on Admission: No
[2019-02-09 12:00] VITALS: BP 112/56; PULSE 85; RESP 14; TEMP 36.4; O2SAT 96
--- NOTE | 2019-02-09 12:05 | CM.DPC ---
Addendum entered by Zoie Manjarrez R.N. 02/09/19 15:38: [place] from patient's insurance company, [employer], that patient is authorized for assisted. Spoke to Iliana at [facility], they have auth, and will expect patient tomorrow. Will go ahead and complete PASSR Original Note: DCP Cont: Spoke to Iliana at [facility] in admissions who confirmed that they can accept patient. She mentioned that they did not yet have MED ADV authorization as of yet. Stated, could take another day. Will follow up tomorrow as well. P: DCP to continue to follow. Plan is for [facility] when insurance authorization is received. Zoie Manjarrez RN/Surveillance Officer
--- NOTE | 2019-02-09 12:41 | PT.IPTN ---
Current Diagnoses Other osteoporosis with current pathological fracture, right femur, initial encounter for fracture (02/07/19) Surgery Performed Operation Date: 02/08/19 07:45 Actual Procedures p Hip Hemiarthroplasty Neel femoral neck fracture(Right) - Solomon Galloway MD Physical Therapy Treatment Note M2 PT-IP Current Condition Start: 02/07/19 14:50 Freq: NEEDED Status: Active Protocol: Document 02/08/19 14:15 IJS (Rec: 02/08/19 15:20 IJS [email or web address]) Physical Therapy Current Condition Current Condition Evaluation Date 02/08/19 Treatment Diagnosis Right HANSEL - posterior, walking /gait disturbance Onset Date 02/08/19 Precautions Posterior Hip Precautions No Hip Flexion > 90 degrees No Hip Internal Rotation No Hip Adduction Weight Bearing Status Weight Bearing Status Weight Bear as Tolerated M3 PT-IP Subjective Start: 02/07/19 14:50 Freq: NEEDED Status: Active Protocol: Document 02/09/19 11:50 CLB (Rec: 02/09/19 12:41 CLB [id number]) Subjective Physical Therapy Visit Type Type Treatment Note Visit Start Time 11:58 Visit Stop Time 12:25 Total Visit Minutes 27 Number of TACTICAL RESPONSE GROUP OFFICER Visits 1 Physical Therapy Visit Comments Patient Comments Pt agreeable to transfer to chair. Therapy Pain Assessment Pain When Pain Assessed During Mobility M4 PT-IP Mobility and Gait Start: 02/07/19 14:50 Freq: NEEDED Status: Active Protocol: Document 02/09/19 11:50 CLB (Rec: 02/09/19 12:41 CLB [id number]) PT-Bed Mobility Assessment Supine to Sit Supine to Sit Moderate Assistance Maximum Assistance 1 Person Assistance Scooting Scooting to Edge of Bed Maximum Assistance PT-Transfer Assessment Transfers Transfer Destination Chair Transfer Technique Squat Pivot Transfer Ability Level of Assist Total Assistance Comments Mobility Comments Pt unable to stand. Pt attempted standing x2 but unable to stand due to pain. Pt continues to need physical assist to prevent right hip internal rotation. Informed nursing to keep pillow inbetween knees to prevent hip internal rotation while in bed and sitting in chair. Gait Assessment Comments Gait Comments unable M5 PT-IP Objective Assessments Start: 02/07/19 14:50 Freq: NEEDED Status: Active Protocol: Document 02/08/19 14:15 IJS (Rec: 02/08/19 15:20 IJS [email or web address]) Orientation Orientation/Cognition Level of Alertness Alert Orientation Name Language Function Ability No Deficits Noted Safety Awareness Decreased Safety Awareness Comments Reviewed hip precautions but doubtful she will remember them. Gross Range of Motion Upper Extremity ROM Assessment Right Impaired Impairments Has contrctures of the right hand, it stay in a fist. Lower Extremity ROM Assessment Right Impaired Impairments Per HANSEL protocal Strength Upper Extremity Strength Assessment Within Functional Limits Lower Extremity Strength Assessment Within Functional Limits Comments Strength Comments Weak appearing and fraile looking but can move against gravity Coordination Assessment Gross Coordination Gross Coordination Impaired Assessment Coordination Comments Cues needed for hand placement and challenges from the Parkinsons Sensation Assessment Sensation Gross Sensation WNL Light Touch Intact Muscle Tone Muscle Tone WNL Yes M6 PT-IP Treatment Start: 02/07/19 14:50 Freq: NEEDED Status: Active Protocol: Document 02/09/19 11:50 CLB (Rec: 02/09/19 12:41 CLB [id number]) Physical Therapy Treatment Exercises Exercises Heel Slides Education Education Provided Precautions M7 PT-IP Assessment and Plan Start: 02/07/19 14:50 Freq: NEEDED Status: Active Protocol: Document 02/09/19 11:50 CLB (Rec: 02/09/19 12:41 CLB [id number]) PT Summary Assessment and Plan Summary Assessment Summary Pt required Mod-Max A with bed mobility and was unable to come to full stand either attempt. Pt required squat pivot transfer to chair. Pt left in chair with family and SMALL BUSINESS REPRESENTATIVE present in room. Goals Bed Mobility Goal Contact Guard Assistance Transfer Goal Contact Guard Assistance Gait Goal Contact Guard Assistance Gait Distance 100 Frequency of Treatment Frequency Of Treatment Twice a Day Treatment Plan Physical Therapy Treatment Plan Bed Mobility Training Transfer Training Gait Training Therapeutic Exercise Balance Retraining Post Op Education Discharge Planning Other Recommendations and Next Treatment bed mobility and sit-stand. Focus Recommendations To Nursing Amount of Assist Needed PT/OT Assist Only Mechanical Lift Discharge Recommendations PT Discharge Recommendations SNF Rehab
--- NOTE | 2019-02-09 14:49 | PT.IPTN ---
Current Diagnoses Other osteoporosis with current pathological fracture, right femur, initial encounter for fracture (02/07/19) Surgery Performed Operation Date: 02/08/19 07:45 Actual Procedures p Hip Hemiarthroplasty Neel femoral neck fracture(Right) - Solomon Galloway MD Physical Therapy Treatment Note M2 PT-IP Current Condition Start: 02/07/19 14:50 Freq: NEEDED Status: Active Protocol: Document 02/08/19 14:15 IJS (Rec: 02/08/19 15:20 IJS [id number]) Physical Therapy Current Condition Current Condition Evaluation Date 02/08/19 Treatment Diagnosis Right HANSEL - posterior, walking /gait disturbance Onset Date 02/08/19 Precautions Posterior Hip Precautions No Hip Flexion > 90 degrees No Hip Internal Rotation No Hip Adduction Weight Bearing Status Weight Bearing Status Weight Bear as Tolerated M3 PT-IP Subjective Start: 02/07/19 14:50 Freq: NEEDED Status: Active Protocol: Document 02/09/19 13:50 LJ (Rec: 02/09/19 14:49 LJ [id number]) Subjective Physical Therapy Visit Type Type Treatment Note Visit Start Time 13:50 Visit Stop Time 14:05 Total Visit Minutes 15 Physical Therapy Visit Comments Patient Comments Pt in chair wanting to get back into bed M4 PT-IP Mobility and Gait Start: 02/07/19 14:50 Freq: NEEDED Status: Active Protocol: Document 02/09/19 13:50 LJ (Rec: 02/09/19 14:49 LJ [id number]) PT-Bed Mobility Assessment Supine to Sit Supine to Sit Moderate Assistance Maximum Assistance 1 Person Assistance Scooting Scooting to Edge of Bed Maximum Assistance PT-Transfer Assessment Transfers Transfer Destination Bed Transfer Technique Squat Pivot Transfer Ability Level of Assist Total Assistance Comments Mobility Comments Pt unable to stand. Performed Squat pivot and assisted pt getting positioned in bed with MaxA. 1 person pivot and 2 person bed positioning. Gait Assessment Comments Gait Comments unable M5 PT-IP Objective Assessments Start: 02/07/19 14:50 Freq: NEEDED Status: Active Protocol: Document 02/08/19 14:15 IJS (Rec: 02/08/19 15:20 IJS [id number]) Orientation Orientation/Cognition Level of Alertness Alert Orientation Name Language Function Ability No Deficits Noted Safety Awareness Decreased Safety Awareness Comments Reviewed hip precautions but doubtful she will remember them. Gross Range of Motion Upper Extremity ROM Assessment Right Impaired Impairments Has contrctures of the right hand, it stay in a fist. Lower Extremity ROM Assessment Right Impaired Impairments Per HANSEL protocal Strength Upper Extremity Strength Assessment Within Functional Limits Lower Extremity Strength Assessment Within Functional Limits Comments Strength Comments Weak appearing and fraile looking but can move against gravity Coordination Assessment Gross Coordination Gross Coordination Impaired Assessment Coordination Comments Cues needed for hand placement and challenges from the Parkinsons Sensation Assessment Sensation Gross Sensation WNL Light Touch Intact Muscle Tone Muscle Tone WNL Yes M6 PT-IP Treatment Start: 02/07/19 14:50 Freq: NEEDED Status: Active Protocol: Document 02/09/19 11:50 CLB (Rec: 02/09/19 12:41 CLB [id number]) Physical Therapy Treatment Exercises Exercises Heel Slides Education Education Provided Precautions M7 PT-IP Assessment and Plan Start: 02/07/19 14:50 Freq: NEEDED Status: Active Protocol: Document 02/09/19 13:50 LJ (Rec: 02/09/19 14:49 LJ [id number]) PT Summary Assessment and Plan Summary Assessment Summary Pt requiring maxA for bed mobility and squat pivot total assist for transfer from chair to bed. Frequency of Treatment Frequency Of Treatment Twice a Day Treatment Plan Physical Therapy Treatment Plan Bed Mobility Training Transfer Training Gait Training Therapeutic Exercise Balance Retraining Post Op Education Discharge Planning Other Recommendations and Next Treatment bed mobility and sit-stand. Focus Recommendations To Nursing Amount of Assist Needed PT/OT Assist Only Mechanical Lift Discharge Recommendations PT Discharge Recommendations SNF Rehab
[2019-02-09] MEDS: SENNOSIDES 8.6 MG TABLET 17.2 MG PO (14:53)
--- NOTE | 2019-02-09 15:04 | PC.NURSE ---
AM NOTE - awake, oriented to hospital and remembers falling, speech clear, denies pain when not moving, aquacell cdi, some redness buttock area, no open areas noted, barrier cream applied, states takes her medications crushed in applesauce and given scheduled tylenol this am for pain mgt in addition to other scheduled medications, aguiar w/clear pale, yellow urine, scd on, yanet orange juice, later stated didn't want any lunch, had kitchen make her a protein smoothie and she liked it and finished for lunch, phys therapy in and pt up dangle stood briefly, unable to use rle to help with tsf due to hx and pain, r hand contracted and fine resting tremor, pivot to chair, after lunch, phys therapy in and again stood and pivot back to bed.
[2019-02-09 15:57] VITALS: BP 104/60; PULSE 83; RESP 14; TEMP 36.3; O2SAT 99
[2019-02-09 21:20] VITALS: BP 115/57; PULSE 87; RESP 14; TEMP 36.9; O2SAT 95
[2019-02-10 00:40] VITALS: BP 126/68; PULSE 82; RESP 18; TEMP 37.4; O2SAT 98
[2019-02-10 04:45] VITALS: BP 136/64; PULSE 80; RESP 18; TEMP 37.3; O2SAT 96
[2019-02-10 08:00] VITALS: BP 126/67; PULSE 79; RESP 15; TEMP 36.7; O2SAT 95
[2019-02-10] MEDS: ACETAMINOPHEN 325 MG TABLET 975 MG PO ×2 (08:56→14:09)
[2019-02-10] MEDS: ENOXAPARIN 30 MG/0.3 ML SYRINGE SUBCUT (08:56)
[2019-02-10] MEDS: CARBIDOPA-LEVODOPA 25/100 TABLET 1 EACH PO ×2 (08:56→14:08)
[2019-02-10] MEDS: DOCUSATE 100 MG CAPSULE PO (08:56)
[2019-02-10] MEDS: MELOXICAM 7.5 MG TABLET 15 MG PO (08:56)
--- NOTE | 2019-02-10 09:10 | PM.PN.1 ---
Subjective Date Patient Seen: 02/10/19 Interval history: Citlalli Lugos an 78-year-old female who was admitted to the hospital for a right intertrochanteric fracture. Patient underwent total hip replacement without complication. She does have a history of Parkinson's disease. She has been having difficulty with mobilization and requires a 2 person maximum assist at this point. She has constipation it she denies any pain, no shortness of breath, no nausea. Exam Vital Signs (past 8 hours): - 02/10/19 04:45 Temperature 99.2 F Pulse Rate 80 Respiratory Rate 18 Blood Pressure 136/64 Pulse Oximetry 96 Oxygen Delivery Method Room Air Oxygen Flow Rate 0 Narrative Exam Narrative: Pleasant female resting comfortably in no obvious distress Lungs: Clear to auscultation Cardiac exam: Regular rate and rhythm normal S1-S2 Abdomen: Soft and nontender nondistended Extremities: No edema Objective Labs Result Diagrams: 02/09/19 05:14 02/09/19 05:14 Assessment & Plan Assessment & Plan narrative: 1. Status post ground level fall suffering a right intertrochanteric fracture 2. Postop day 2 total hip replaced recovering well 3. Fracture likely related to underlying osteoporosis 4. Parkinson's disease Plan patient will continue carbidopa levodopa. Will continue PT OT at this time. Would start her calcium and vitamin-D following discharge. Plans underway for the patient to be discharged to retirement. Quality VTE Deep Vein Thrombosis/Pulmonary Embolism Present on Admission: No
--- NOTE | 2019-02-10 09:48 | PM.DS.1 ---
History of Present Illness Chief complaint: GLF, Right leg pain Narrative: The patient is an 78-year-old female who lives at [facility] living [facility] who was coming her here today when she fell landing on her hip. She was evaluated in the emergency room and found to have a femoral neck fracture by report the patient was recently diagnosed with Parkinson's syndrome. She was started on low-dose Sinemet for this. The patient has had multiple falls. The falls typically occur in the morning. She is currently without complaint. She has no pain she denies shortness of breath chest pain, nausea, vomiting, headache or other symptoms. The patient was scheduled to see Dr. koroma today and unfortunately presented to the emergency room. She was seen in the emergency room and diagnosed with a right femoral neck fracture and is admitted to the hospital for definitive surgical treatment. Discharge Providers Date of admission: 02/07/19 10:39 Discharge Date: 02/10/19 Primary care physician: Mona Lazar PA-C Consults: 02/07/19 12:06 Consult to Dietitian, Adult Routine Comment: Reason For Exam: 9 risk score 02/08/19 10:48 Consult to Discharge Planning Routine Comment: Consult to Physical Therapy Evaluate & Treat Comment: Physician Instructions: post op HANSEL protocol Consult to Respiratory Therapy Evaluate & Treat Comment: Physician Instructions: Evaluate and treat 02/09/19 13:08 Consult to Dietitian, Adult Routine Comment: like fluids Reason For Exam: poor appetite, parkinson Discharge provider: Mary Quiroga MD Summary Discharge Diagnosis: 1. Right hip fracture status post ground level likely secondary to osteoporosis 2. Status post right he hip hemiarthroplasty 3. Parkinson's disease Hospital Course: Patient is an 78-year-old female who suffered a ground level fall. She had a resultant left hip fracture. Patient underwent definitive surgical treatment. She had a left hip hemiarthroplasty. She tolerated the procedure without difficulty. The patient does have a history of Parkinson's disease. She had some difficulty mobilizing postoperatively. However she has had no medical complications of her procedure. Plans are underway for her to go to group home for ongoing physical therapy and occupational therapy prior to returning to her assisted living. Status at Discharge Cognitive/behavioral status at discharge: oriented Functional status at discharge: uses cane/walker Overall status at discharge: patient is not back to baseline Time Spent with Patient Less than 30 minutes Exam Vital Signs (past 8 hours): - 02/10/19 04:45 Temperature 99.2 F Pulse Rate 80 Respiratory Rate 18 Blood Pressure 136/64 Pulse Oximetry 96 Oxygen Delivery Method Room Air Oxygen Flow Rate 0 Narrative Exam Narrative: Pleasant female resting comfortably Lungs: Clear to auscultation Cardiac exam: Regular rate and rhythm normal S1-S2 with a 2/6 systolic ejection Abdomen: Soft and nontender Extremities no edema right hip with dressing in place Objective Labs Result Diagrams: 02/09/19 05:14 02/09/19 05:14 Discharge Plan Discharge Plan Discharge Problem: Closed fracture of left hip Patient Disposition: SNF Transfer to: [facility] Transportation: [facility] I certify the postop hospital group home care is medically necessary on a continuing basis for any conditions for which he/ she received care during this hospitalization.: Yes The receiving facility has agreed to accept transfer and provide medical treatment.: Yes Discharge Med Rec/Prescriptions Prescriptions: New oxycodone 5 mg Tablet 5 mg PO Q3HR PRN (Reason: Pain, Moderate (4-6)) 7 Days Qty: 15 RF: 0 meloxicam [Mobic] 7.5 mg Tablet 15 mg PO 0800 15 Days Qty: 30 RF: 0 Continued aspirin 325 MG tablet 325 mg PO DAILY Qty: 0 RF: 0 calcium carbonate [Tums] 500 MG tablet,chewable 500 mg PO DAILY Qty: 0 RF: 0 carbidopa-levodopa 25-100 mg tablet,disintegrating 1 tab PO TID RF: 0 cholecalciferol (vitamin D3) [Vitamin D3] 1,000 unit Capsule 1,000 unit PO DAILY RF: 0 Follow up/Referrals: Mona Lazar PA-C [Primary Care Provider] - Discharge Health Status Brief summary of current health status: Patient is status post right hip hemiarthroplasty. Her physical precautions are weight-bearing status as tolerated with posterior hip precautions. Provider Discharge Instructions Diet: Diet as Tolerated Liquid consistency: Normal/Thin Food texture: Regular Skin/Wound/Dressing Care Report to your healthcare provider any signs of infection, such as:: chills, fever and unusual redness Special Rehabilitation Services Reason for rehabilitation: Post-operative therapy Rehab type: Physical therapy and Occupational therapy Restrictions to mobility: Posterior hip precaution Discharge Data Primary Care Provider: Mona Lazar Attending Provider: Quiroga,Mary Admit Date/Time: 02/07/19 10:39 Quality VTE Deep Vein Thrombosis/Pulmonary Embolism Present on Admission: No
--- NOTE | 2019-02-10 09:53 | P.DS_ITS ---
History of Present Illness Chief complaint: GLF, Right leg pain Narrative: The patient is an 78-year-old female who lives at [facility] living [facility] who was coming her here today when she fell landing on her hip. She was evaluated in the emergency room and found to have a femoral neck fracture by report the patient was recently diagnosed with Parkinson's syndrome. She was started on low-dose Sinemet for this. The patient has had multiple falls. The falls typically occur in the morning. She is currently without complaint. She has no pain she denies shortness of breath chest pain, nausea, vomiting, headache or other symptoms. The patient was scheduled to see Dr. koroma today and unfortunately presented to the emergency room. She was seen in the emergency room and diagnosed with a right femoral neck fracture and is admitted to the hospital for definitive surgical treatment. Discharge Providers Date of admission: 02/07/19 10:39 Discharge Date: 02/10/19 Primary care physician: Mona Lazar PA-C Consults: 02/07/19 12:06 Consult to Dietitian, Adult Routine Comment: Reason For Exam: 9 risk score 02/08/19 10:48 Consult to Discharge Planning Routine Comment: Consult to Physical Therapy Evaluate & Treat Comment: Physician Instructions: post op HANSEL protocol Consult to Respiratory Therapy Evaluate & Treat Comment: Physician Instructions: Evaluate and treat 02/09/19 13:08 Consult to Dietitian, Adult Routine Comment: like fluids Reason For Exam: poor appetite, parkinson Discharge provider: Mary Quiroga MD Summary Discharge Diagnosis: 1. Right hip fracture status post ground level likely secondary to osteoporosis 2. Status post right he hip hemiarthroplasty 3. Parkinson's disease Hospital Course: Patient is an 78-year-old female who suffered a ground level fall. She had a resultant left hip fracture. Patient underwent definitive surgical treatment. She had a left hip hemiarthroplasty. She tolerated the procedure without difficulty. The patient does have a history of Parkinson's disease. She had some difficulty mobilizing postoperatively. However she has had no medical complications of her procedure. Plans are underway for her to go to shelter for ongoing physical therapy and occupational therapy prior to returning to her assisted living. Status at Discharge Cognitive/behavioral status at discharge: oriented Functional status at discharge: uses cane/walker Overall status at discharge: patient is not back to baseline Time Spent with Patient Less than 30 minutes Exam Vital Signs (past 8 hours): - 02/10/19 04:45 Temperature 99.2 F Pulse Rate 80 Respiratory Rate 18 Blood Pressure 136/64 Pulse Oximetry 96 Oxygen Delivery Method Room Air Oxygen Flow Rate 0 Narrative Exam Narrative: Pleasant female resting comfortably Lungs: Clear to auscultation Cardiac exam: Regular rate and rhythm normal S1-S2 with a 2/6 systolic ejection Abdomen: Soft and nontender Extremities no edema right hip with dressing in place Objective Labs Result Diagrams: 02/09/19 05:14 02/09/19 05:14 Discharge Plan Discharge Plan Discharge Problem: Closed fracture of left hip Patient Disposition: SNF Transfer to: [facility] Transportation: [facility] I certify the postop hospital shelter care is medically necessary on a continuing basis for any conditions for which he/ she received care during this hospitalization.: Yes The receiving facility has agreed to accept transfer and provide medical treatment.: Yes Discharge Med Rec/Prescriptions Prescriptions: New oxycodone 5 mg Tablet 5 mg PO Q3HR PRN (Reason: Pain, Moderate (4-6)) 7 Days Qty: 15 RF: 0 meloxicam [Mobic] 7.5 mg Tablet 15 mg PO 0800 15 Days Qty: 30 RF: 0 Continued aspirin 325 MG tablet 325 mg PO DAILY Qty: 0 RF: 0 calcium carbonate [Tums] 500 MG tablet,chewable 500 mg PO DAILY Qty: 0 RF: 0 carbidopa-levodopa 25-100 mg tablet,disintegrating 1 tab PO TID RF: 0 cholecalciferol (vitamin D3) [Vitamin D3] 1,000 unit Capsule 1,000 unit PO DAILY RF: 0 Follow up/Referrals: Mona Lazar PA-C [Primary Care Provider] - Discharge Health Status Brief summary of current health status: Patient is status post right hip hemiarthroplasty. Her physical precautions are weight-bearing status as tolerated with posterior hip precautions. Provider Discharge Instructions Diet: Diet as Tolerated Liquid consistency: Normal/Thin Food texture: Regular Skin/Wound/Dressing Care Report to your healthcare provider any signs of infection, such as:: chills, fever and unusual redness Special Rehabilitation Services Reason for rehabilitation: Post-operative therapy Rehab type: Physical therapy and Occupational therapy Restrictions to mobility: Posterior hip precaution Discharge Data Primary Care Provider: Mona Lazar Attending Provider: Quiroga,Mary Admit Date/Time: 02/07/19 10:39 Quality VTE Deep Vein Thrombosis/Pulmonary Embolism Present on Admission: No
[2019-02-10] MEDS: POLYETHYLENE GLYCOL 3350 17 GM POWD.PACK PO (10:04)
--- NOTE | 2019-02-10 11:02 | CM.DPC ---
DCP Cont: Patient is being discharged to [facility] today. Confirmed with Iliana in admissions that they will accept. Updated patient, as well as Gabriella BATES, who signed updated IMM. Updated nurse, Monique, and patient has not yet had BM. They are planning on picking her up at approximately 1500. White board updated, PASSR, med sheets, and discharge summary faxed to [facility]. P: Patient will be discharged today to [facility]. Zoie Manjarrez RN/Elementary School Registrar
[2019-02-10] MEDS: BISACODYL 10 MG SUPP PR (11:18)
--- NOTE | 2019-02-10 11:44 | PC.NURSE ---
Addendum entered by Monique Grissom R.N. 02/10/19 15:45: DC - When [facility] staff arrived, phys therapy trsf to , given 975mg tylenol with her sinnemet prior to transfer, belongings gathered by family, including esteves, report called to nurse Anisa. Addendum entered by Monique Grissom R.N. 02/10/19 12:14: GI/MS - pt assisted by PT and OT to [facility], stand and pivot only, large formed bm, pericare performed, stood w/fww, able to take a very few small steps to chair. Original Note: AM NOTE - pt easily awakens, did eat breakfast with encouragement and set up by salesperson jewelry, denies pain at rest, aquacell cdi, scd on, pt able to wiggle r toes only slightly, has a contracted right hand ra 96%, hr 90, + bt, denies flatus, new orders rec'd this am and given miralax in orange juice and then dulcolax suppos.
--- NOTE | 2019-02-10 12:10 | PT.IPTN ---
Current Diagnoses Other osteoporosis with current pathological fracture, right femur, initial encounter for fracture (02/07/19) Surgery Performed Operation Date: 02/08/19 07:45 Actual Procedures p Hip Hemiarthroplasty Neel femoral neck fracture(Right) - Solomon Galloway MD Physical Therapy Treatment Note M2 PT-IP Current Condition Start: 02/07/19 14:50 Freq: NEEDED Status: Active Protocol: Document 02/08/19 14:15 IJS (Rec: 02/08/19 15:20 IJS [id number]) Physical Therapy Current Condition Current Condition Evaluation Date 02/08/19 Treatment Diagnosis Right HANSEL - posterior, walking /gait disturbance Onset Date 02/08/19 Precautions Posterior Hip Precautions No Hip Flexion > 90 degrees No Hip Internal Rotation No Hip Adduction Weight Bearing Status Weight Bearing Status Weight Bear as Tolerated M3 PT-IP Subjective Start: 02/07/19 14:50 Freq: NEEDED Status: Active Protocol: Document 02/10/19 11:40 CLB (Rec: 02/10/19 12:10 CLB [id number]) Subjective Physical Therapy Visit Type Type Treatment Note Visit Start Time 11:40 Visit Stop Time 12:03 Total Visit Minutes 23 Number of SURVEILLANCE INVESTIGATOR Visits 3 Physical Therapy Visit Comments Patient Comments Pt needing to use BSC. Therapy Pain Assessment Pain When Pain Assessed During Mobility M4 PT-IP Mobility and Gait Start: 02/07/19 14:50 Freq: NEEDED Status: Active Protocol: Document 02/10/19 11:40 CLB (Rec: 02/10/19 12:10 CLB [id number]) PT-Bed Mobility Assessment Supine to Sit Supine to Sit Moderate Assistance Maximum Assistance 1 Person Assistance Scooting Scooting to Edge of Bed Maximum Assistance PT-Transfer Assessment Sit to and From Stand Sit to and from Stand Minimal Assistance Equipment Transfer Assistive Device Gait Belt Front Wheeled Walker Orthotic/Prosthetic Devices or Brace: No Transfers Transfer Destination Chair Bedside Commode Transfer Technique Stand Pivot Transfer Ability Level of Assist Moderate Assistance 1 Person Assistance Comments Mobility Comments Pt was able to stand Mod A with hands on therapists shoulders and take small steps to BSC. Pt stood for pericare by nursing Mod A. Gait Assessment Gait Gait Assistance Required: Minimum Assistance Distance (Feet) 2 Able to Maintain Weight Bearing Status Yes During Gait Assistive Devices Assistive Device Gait Belt Front Wheeled Walker Orthotic/Prosthetic Devices or Brace: No Gait Deviations General Gait Pattern Decreased Stride Length Decreased Feet Clearance Narrow Based Gait Step-to Gait Factors Limiting Gait Function Factors Limiting Gait Function Decreased Activity Tolerance Incoordination Poor Safety Awareness Comments Gait Comments Pt able to take a few small steps with assist weight shifting and cues for step sequencing. Pt with increased pain required to sit down. Chair was brought around behind her so pt could sit. M5 PT-IP Objective Assessments Start: 02/07/19 14:50 Freq: NEEDED Status: Active Protocol: Document 02/08/19 14:15 IJS (Rec: 02/08/19 15:20 IJS [email or web address]) Orientation Orientation/Cognition Level of Alertness Alert Orientation Name Language Function Ability No Deficits Noted Safety Awareness Decreased Safety Awareness Comments Reviewed hip precautions but doubtful she will remember them. Gross Range of Motion Upper Extremity ROM Assessment Right Impaired Impairments Has contrctures of the right hand, it stay in a fist. Lower Extremity ROM Assessment Right Impaired Impairments Per HANSEL protocal Strength Upper Extremity Strength Assessment Within Functional Limits Lower Extremity Strength Assessment Within Functional Limits Comments Strength Comments Weak appearing and fraile looking but can move against gravity Coordination Assessment Gross Coordination Gross Coordination Impaired Assessment Coordination Comments Cues needed for hand placement and challenges from the Parkinsons Sensation Assessment Sensation Gross Sensation WNL Light Touch Intact Muscle Tone Muscle Tone WNL Yes M6 PT-IP Treatment Start: 02/07/19 14:50 Freq: NEEDED Status: Active Protocol: Document 02/09/19 11:50 CLB (Rec: 02/09/19 12:41 CLB [id number]) Physical Therapy Treatment Exercises Exercises Heel Slides Education Education Provided Precautions M7 PT-IP Assessment and Plan Start: 02/07/19 14:50 Freq: NEEDED Status: Active Protocol: Document 02/10/19 11:40 CLB (Rec: 02/10/19 12:10 CLB [id number]) PT Summary Assessment and Plan Summary Impairments Balance Coordination Bed Mobility Transfers Gait Activity Tolerance Assessment Summary Pt continues to require Mod- Max A for all bed mobility and Min-Mod A for sit-stand and gait. Goals Bed Mobility Goal Contact Guard Assistance Transfer Goal Contact Guard Assistance Gait Goal Contact Guard Assistance Gait Distance 100 Frequency of Treatment Frequency Of Treatment Twice a Day Treatment Plan Physical Therapy Treatment Plan Bed Mobility Training Transfer Training Gait Training Therapeutic Exercise Balance Retraining Post Op Education Discharge Planning Other Recommendations and Next Treatment bed mobility and sit-stand. Focus Recommendations To Nursing Amount of Assist Needed PT/OT Assist Only Mechanical Lift Discharge Recommendations PT Discharge Recommendations SNF Rehab
--- NOTE | 2019-03-06 15:38 | P.CONS_ITS ---
History of Present Illness Consult details Date Patient Seen: 02/08/19 Time Patient Seen: 16:00 Chief complaint: GLF, Right leg pain Reason for consult: Right hip fracture Requesting provider: Mary Quiroga Narrative: The patient is an 78-year-old woman who lives at [facility] who was coming her here today when she fell landing on her hip. She was evaluated in the emergency room and found to have a femoral neck fracture. She has recently been diagnosed with Parkinson's syndrome. She has frequent falls at the nursing facility and typically uses a walker. There was no indication of loss of consciousness or other significant injuries. [facility] Medical History Parkinsons (Acute) Family History Father Heart disease Social History household members: caregiver and other Smoking Status: Never smoker alcohol intake: never Family History Father Heart disease Social History household members: caregiver and other Smoking Status: Never smoker alcohol intake: never Meds Home Medications and Allergies Home Medications Medication Instructions Recorded Confirmed Type aspirin 325 mg PO DAILY #0 06/15/17 02/07/19 History calcium carbonate [Tums] 500 mg PO DAILY #0 08/08/17 02/07/19 History carbidopa-levodopa 1 tab PO TID 02/07/19 02/07/19 History cholecalciferol (vitamin D3) 1,000 unit PO DAILY 02/07/19 02/07/19 History [Vitamin D3] acetaminophen [Tylenol Extra 1,000 mg PO QID PRN #30 tab 02/10/19 Rx Strength] Allergies Allergy/AdvReac Type Severity Reaction Status Date / Time No Known Drug Allergies Allergy Verified 02/08/19 06:58 Review of Systems Review of Systems ROS Unobtainable: All systems reviewed & are unremarkable except as noted in HPI and below Exam Vital Signs (past 8 hours): Oxygen Delivery Method Room Air Oxygen Flow Rate 0 Extrem Other: There shortening or rotation of the right hip consistent with femoral neck fracture. Right hip range of motion is painful. No significant skin lesions are noted. The remaining extremities are unremarkable. Let see medical admission for detailed history and physical. Objective Labs Result Diagrams: 02/09/19 05:14 02/09/19 05:14 Assessment & Plan Assessment & Plan narrative: Displaced right femoral neck fracture. The patient has a displaced right femoral neck fracture. We discussed the nature of this condition further treatment options including conservative and surgical measures. I recommended replacement with a hemiarthroplasty. The nature of that procedure including the risks, benefits, alternatives, postoperative course expected outcome were discussed with patient and her family. Informed consent obtained. Operative site confirmed and marked. Time Spent With Patient Time with patient: 15-24 minutes
== END 2019-02-10 15:30 | DRG 470 ==
LOC: ED 10:30 → AC 10:40
PROVIDERS: Orthopaedic Surgery; Admitting Provider Internal Medicine; Emergency Provider Emergency Medicine; Family Provider Physician Assistant; PCP Physician Assistant; Visit Provider Internal Medicine
PROC: 0SRR0JZ Replacement of Right Hip Joint, Femoral Surface with Synthetic Substitute, Open Approach (ICD-10-PCS; CPT 27125; principal; 2019-02-08 07:45)
DX: M80.851A Other osteoporosis with current pathological fracture, right femur, initial encounter for fracture (principal); Z68.1 Body mass index [BMI] 19.9 or less, adult; G20 Parkinson's disease; F50.89 Other specified eating disorder; W18.30XA Fall on same level, unspecified, initial encounter
CPT/HCPCS: 36415; 51701; 73502; 80048; 80053; 81001; 85025; 85610; 85730; 87086; 93005; 94760; 96374; 97110; 97161; 97530; 99283; 99285; C1776; J0690; J1100; J1644; J1650; J2270; J2704; J3010

== ENCOUNTER → 2019-02-25 21:47 | Outpatient (ROUT) | payer MEDICARE, SELFPAY ==
[2019-02-07 11:42] VITALS: BMI 16.0
[2019-02-25 21:53] LABS: Bilirubin Urine UA 1+ (NEGATIVE); Glucose Urine UA TRACE g/dL (Negative); Ketones Urine UA 1+ (NEGATIVE); Leukocyte Esterase Urine UA 3+ (NEGATIVE); Nitrite Urine UA POSITIVE (Negative); Occult Blood Urine UA 3+ (Negative); Protein Urine UA 3+ (Negative); pH Urine UA 6.5 (4.5-8.0)
[2019-02-25 21:54] LABS: Appearance Urine UA CLOUDY; Color Urine UA BROWN
[2019-02-25 22:02] LABS: Bacteria Urine Many (>30); Culture Indicated Urine Specimen Cultured; Ictotest Urine Negative (Negative); RBC Urine 30-100/HPF (0-5/HPF); Squamous Epithelial Cell Urine 0-1 /HPF (0-5/HPF); WBC Urine >100/HPF (0-5/HPF)
== END ==
PROVIDERS: Family Provider Physician Assistant; PCP Physician Assistant; Visit Provider Nurse Practitioner Family
DX: N39.0 Urinary tract infection, site not specified (principal)
CPT/HCPCS: 81001; 87077; 87086; 87186

== ENCOUNTER 2021-05-30 10:56 | Emergency (ER) | payer MEDICARE, SELFPAY ==
[2019-02-07 11:42] VITALS: BMI 16.0
[2021-05-30] VITALS (7 sets, daily range): BP systolic 132–136; BP diastolic 62–77; PULSE 69–74; RESP 13–18; TEMP 36.8; O2SAT 96–99; BMI 17.2
--- NOTE | 2021-05-30 11:03 | ED_ITS ---
HPI - General Adult General Chief complaint: Altered Mental Status Stated complaint: Possible Stroke Time Seen by Provider: 05/30/21 10:58 Source: patient and EMS Mode of arrival: Ambulatory History of Present Illness HPI narrative: Patient is an 81-year-old female who was brought in by BLS for what was initially thought of as a potential stroke. Is reported by the EMS crew that this morning the patient was found by the staff at the facility where she lives with her ?face down in her cereal. Is reported that the patient does have a history of Parkinson's disease. Unsure when her last known normal was. Upon arrival here to the emergency department the patient has no complaints. Patient was unaware of the circumstances that happened this morning. Related Data Home Medications Medication Instructions Recorded Confirmed aspirin 325 mg tablet 325 mg PO DAILY #0 06/15/17 02/07/19 calcium carbonate 200 mg calcium 500 mg PO DAILY #0 08/08/17 02/07/19 (500 mg) chewable tablet (Tums) carbidopa 25 mg-levodopa 100 mg 1 tab PO TID 02/07/19 02/07/19 disintegrating tablet cholecalciferol (vitamin D3) 25 1,000 unit PO DAILY 02/07/19 02/07/19 mcg (1,000 unit) capsule (Vitamin D3) Previous Rx's Medication Instructions Recorded acetaminophen 500 mg tablet 1,000 mg PO QID PRN #30 tab 02/10/19 (Tylenol Extra Strength) Allergies Allergy/AdvReac Type Severity Reaction Status Date / Time No Known Drug Allergies Allergy Verified 02/08/19 06:58 Review of Systems Constitutional Constitutional: Denies headache(s) Eyes Eyes: Denies change in vision ENT Ears, Nose, Mouth, and Throat: Denies headache(s) and Denies sore throat Cardiovascular Cardiovascular: Denies chest pain and Denies dyspnea Respiratory Respiratory: Denies dyspnea Gastrointestinal Gastrointestinal: Denies abdominal pain Genitourinary Genitourinary: Denies dysuria Musculoskeletal Musculoskeletal: Denies back pain and Denies arthralgias Neurologic Neurologic: Reports system reviewed and no additional complaints, except as doc umented, Reports as per HPI and Denies headache(s) Psychiatric Psychiatric: Reports system reviewed and no additional complaints, except as documented Hematologic/Lymphatic On Anticoagulants: No Patient History Medical History (Updated 05/30/21 @ 12:33 by Kennedy Fuller DO) Parkinsons Family History Father Heart disease Social History household members: caregiver and other Smoking Status: Never smoker alcohol intake: never Smoking Status: Never smoker alcohol intake frequency: 0-2 drinks per day Substance Use Type: does not use Exam Initial Vital Signs Initial Vital Signs: Vital Signs Temperature 98.3 F 05/30/21 11:06 Pulse Rate 70 05/30/21 11:06 Respiratory Rate 18 05/30/21 11:06 Blood Pressure 132/67 05/30/21 11:06 Pulse Oximetry 97 05/30/21 11:06 Const General: comfortable and well developed Limitations: mental status not altered HENMT Head: normal to inspection and normocephalic Eyes General: appearance normal, both eyes and all related structures Chest Chest: normal inspection of the chest Resp Effort & Inspection: normal respiratory effort Auscultation: clear to auscultation bilaterally Cardio Rate: regular rate Rhythm: regular rhythm GI Inspection: normal to inspection and non-distended Palpation: soft and No firm Skin General: no rashes or lesions noted Neuro General: patient alert, patient awake, patient oriented x3 and moves all extremities Cranial Nerves: CN's II-XI intact bilaterally Speech: speech normal Sensory Exam: no sensory deficits noted Other: Patient does have some issues with [id number] to her right hand. She is unable to strain her fingers on the right. She states that this is not new and is baseline for her. She otherwise can move all 4 extremities. Extrem General: capillary refill normal Psych Appearance: grossly normal and well kempt Course Orders Ordered: ED Orders 05/30/21 11:11 CT head/brain wo con Stat Complete Blood Count AUTO DIFF Stat Comprehensive Metabolic Panel Stat Lipase Stat Troponin & CK Cardiac Panel Stat EKG-12 Lead Stat Vital Signs Vital signs: Vital Signs - 8 hr 05/30/21 11:06 Temperature 98.3 F Pulse Rate 70 Respiratory Rate 18 Blood Pressure 132/67 Pulse Oximetry 97 Medical Decision Making Lab Data Result diagrams: 05/30/21 11:32 05/30/21 11:32 Labs: Lab Results 05/30/21 05/30/21 Range/Units 11:32 11:32 WBC 4.8 (4.5-11.0) X10^3/uL RBC 4.65 (4.0-5.2) X10^6/uL Hgb 13.3 (12.0-16.0) g/dL Hct 40.7 (36-46) % MCV 87.5 (80-100) fL MCH 28.7 (26-34) PG MCHC 32.8 (30-36) % RDW 14.4 (11.6-14.8) % Plt Count 348 (150-400) X10^3/uL Neut % (Auto) 52.2 (50-75) % Lymph % (Auto) 37.4 (25-40) % Runnels % (Auto) 6.9 (3-14) % Eos % (Auto) 1.8 L (2-4) % Baso % (Auto) 1.7 (0-2) % Neut # (Auto) 2500 (6916-1433) /uL Lymph # (Auto) 1800 (8452-1773) /uL Runnels # (Auto) 300 (0-900) /uL Eos # (Auto) 100 (0-450) /uL Baso # (Auto) 100 (0-100) /uL Sodium 140 (137-145) mmol/L Potassium 4.8 (3.4-5.1) mmol/L Chloride 104 (98-107) mmol/L Carbon Dioxide 28 (22-32) mmol/L BUN 22 H (7-17) mg/dL Creatinine 0.48 L (0.52-1.04) mg/dL Estimated GFR > 60.0 (>60) mL/min BUN/Creatinine Ratio 45.8 H (6-22) Glucose 95 (80-110) mg/dL Calcium 11.0 H (8.4-10.2) mg/dL Total Bilirubin 0.9 (0.2-1.3) mg/dL AST 41 H (14-36) IU/L ALT 12 (<35) IU/L Alkaline Phosphatase 67 (38-126) U/L Total Creatine Kinase 46 (30-135) U/L CK-MB (CK-2) TNP CK-MB (CK-2) Rel Index TNP Troponin I < 0.012 (0.01-0.034) ng/mL Total Protein 8.3 H (6.3-8.2) g/dL Albumin 4.6 (3.5-5.0) g/dL Globulin 3.7 (1.7-4.1) g/dL Albumin/Globulin Ratio 1.2 (1.0-2.8) Lipase 138 (23-300) U/L Imaging Data CT scan - head: Radiologist's Impression: [address] [address] [address] Scan Report Signed Patient: Citlalli Mcdonald MR#: [id number] : 1940 Acct:[id number] Age/Sex: 81 / F Date of Service: 05/30/21 Loc: ED Accession Number: [id number] ?? Procedure: CT head/brain wo con Ordering Provider: Kennedy Fuller D.O. PROCEDURE:? CT HEAD/BRAIN WO CON ? INDICATIONS:? Altered mental status ? TECHNIQUE:? Noncontrast 4.5 mm thick angled axial sections acquired from the foramen magnum to the vertex, with coronal and sagittal reformats.? For radiation dose reduction, the following was used:? automated exposure control, adjustment of mA and/or kV according to patient size.? ? COMPARISON:? [facility], MR, MR BRAIN WITH/WITHOUT CONTRAST, 04/29/2017, 15:07.? [facility], CT, HEAD WITHOUT CONTRAST, 10/19/2016, 21:00. ? FINDINGS:? Image quality:? Excellent.? ? CSF spaces:? Basal cisterns are patent.? A stable arachnoid cyst can be seen involving the left lateral superior posterior fossa.? The ventricles are symmetric in size and shape.? ? Brain:? No intracranial bleeds or masses.? There is cerebral volume loss for age, with resultant ventricular and sulcal prominence.? There are periventricular and deep white matter chronic small vessel ischemic changes.? There is intracranial internal carotid artery atherosclerosis.? ? Skull and face:? Calvarium and visualized facial bones appear intact, without suspicious lesions.? ? Sinuses:? Visualized sinuses and mastoids are clear.? ? ? IMPRESSION: ? No acute intracranial process is seen. ? ? Incidental note is made of: Stable left lateral superior posterior fossa arachnoid cyst ? ? Dictated by: Manuel Tom M.D. on 05/30/2021 at 10:25 ? ? Approved by: Manuel Tom M.D. on 05/30/2021 at 10:27? ECG Data Attestation: I personally reviewed and interpreted this ECG as follows: Interpretation: Sinus rhythm Ventricular rate 80 Normal axis Normal QRS Normal QTC No ST T wave changes MDM Narrative Medical decision making narrative: Patient's workup here in the emergency department is reassuring to include her head CT. Patient does have a relative at bedside and relative thinks that the patient is at baseline. Unsure as to the exact situations at happened this morning. Low suspicion for CVA. Potentially a syncopal episode but are not 100% convinced of this. Plan will be is to discharge home. Will make no changes to any of her medications. I did discuss this with the patient. They expressed understanding and agreement. Discharge Plan Departure Patient Disposition: Home Clinical Impression: Parkinson's disease Instructions: How to Prevent Falls Activity Restrictions/Additional Instructions: I would continue to take all of your medications as directed. Contact your primary doctor for follow-up. Return to the emergency department for any new or worsening symptoms Prescriptions: No Action aspirin 325 MG tablet 325 mg PO DAILY Qty: 0 0RF calcium carbonate [Tums] 500 MG tablet,chewable 500 mg PO DAILY Qty: 0 0RF carbidopa-levodopa 25-100 mg tablet,disintegrating 1 tab PO TID 0RF Rx Instructions: 0800 1400 2000 cholecalciferol (vitamin D3) [Vitamin D3] 1,000 unit Capsule 1,000 unit PO DAILY 0RF acetaminophen [Tylenol Extra Strength] 500 mg tablet 1,000 mg PO QID PRN (Reason: pain) Qty: 30 0RF Referrals: Mona Lazar PA-C [Primary Care Provider] -
--- NOTE | 2021-05-30 11:11 | DI.CT.S_ITS ---
PROCEDURE: CT HEAD/BRAIN WO CON INDICATIONS: Altered mental status TECHNIQUE: Noncontrast 4.5 mm thick angled axial sections acquired from the foramen magnum to the vertex, with coronal and sagittal reformats. For radiation dose reduction, the following was used: automated exposure control, adjustment of mA and/or kV according to patient size. COMPARISON: [facility], MR, MR BRAIN WITH/WITHOUT CONTRAST, 04/29/2017, 15:07. [facility], CT, HEAD WITHOUT CONTRAST, 10/19/2016, 21:00. FINDINGS: Image quality: Excellent. CSF spaces: Basal cisterns are patent. A stable arachnoid cyst can be seen involving the left lateral superior posterior fossa. The ventricles are symmetric in size and shape. Brain: No intracranial bleeds or masses. There is cerebral volume loss for age, with resultant ventricular and sulcal prominence. There are periventricular and deep white matter chronic small vessel ischemic changes. There is intracranial internal carotid artery atherosclerosis. Skull and face: Calvarium and visualized facial bones appear intact, without suspicious lesions. Sinuses: Visualized sinuses and mastoids are clear. IMPRESSION: No acute intracranial process is seen. Incidental note is made of: Stable left lateral superior posterior fossa arachnoid cyst Dictated by: Manuel Tom M.D. on 05/30/2021 at 10:25 Approved by: Manuel Tom M.D. on 05/30/2021 at 10:27
[2021-05-30 11:39] LABS: Add Manual Diff / Slide Review NO; Basophils Absolute Auto 100 /uL (0-100); Basophils Percent Auto 1.7 % (0-2); Eosinophils Absolute Auto 100 /uL (0-450); Eosinophils Percent Auto 1.8 % (2-4); Hematocrit 40.7 % (36-46); Hemoglobin 13.3 g/dL (12.0-16.0); Lymphocytes Absolute Auto 1800 /uL (1100-4500); Lymphocytes Percent Auto 37.4 % (25-40); Mean Corpuscular HGB Conc 32.8 % (30-36); Mean Corpuscular Hemoglobin 28.7 PG (26-34); Mean Corpuscular Volume 87.5 fL (80-100); Monocytes Absolute Auto 300 /uL (0-900); Monocytes Percent Auto 6.9 % (3-14); Neutrophils Absolute Auto 2500 /uL (1500-7000); Neutrophils Percent Auto 52.2 % (50-75); Platelet Count 348 X10^3/uL (150-400); Red Blood Cell Count 4.65 X10^6/uL (4.0-5.2); Red Cell Distribution Width 14.4 % (11.6-14.8); White Blood Cell Count 4.8 X10^3/uL (4.5-11.0)
[2021-05-30 11:54] LABS: Alanine Aminotransferase 12 IU/L (<35); Albumin 4.6 g/dL (3.5-5.0); Albumin Globulin Ratio 1.2 (1.0-2.8); Alkaline Phosphatase 67 U/L (38-126); Aspartate Aminotransferase 41 IU/L (14-36); BUN Creatinine Ratio 45.8 (6-22); Bilirubin Total 0.9 mg/dL (0.2-1.3); Blood Urea Nitrogen 22 mg/dL (7-17); Carbon Dioxide 28 mmol/L (22-32); Chloride 104 mmol/L (98-107); Creatine Kinase 46 U/L (30-135); Estimated Glomerular Filt Rate > 60.0 mL/min (>60); Globulin 3.7 g/dL (1.7-4.1); Glucose 95 mg/dL (80-110); Lipase 138 U/L (23-300); Potassium 4.8 mmol/L (3.4-5.1); Sodium 140 mmol/L (137-145); Total Protein 8.3 g/dL (6.3-8.2)
[2021-05-30 11:55] LABS: HEMOLYSIS 118 (0-50)
[2021-05-30 12:05] LABS: Troponin I < 0.012 ng/mL (0.01-0.034)
== END 2021-05-30 13:45 | disposition home or self-care (01) ==
PROVIDERS: Emergency Provider Emergency Medicine; Family Provider Physician Assistant; PCP Physician Assistant
DX: G20 Parkinson's disease (principal)
CPT/HCPCS: 36415; 70450; 80053; 82550; 83690; 84484; 85025; 93005; 99284

== ENCOUNTER 2022-06-05 17:34 | Emergency (ER) | payer MEDICARE, SELFPAY ==
[2019-02-07 11:42] VITALS: BMI 16.0
[2022-06-05] VITALS (10 sets, daily range): BP systolic 113–132; BP diastolic 52–59; PULSE 93–99; RESP 17; TEMP 36.8; O2SAT 94–98; BMI 23.3
--- NOTE | 2022-06-05 17:51 | DI.RAD.S_ITS ---
PROCEDURE: XR CHEST 1V INDICATIONS: chest pain TECHNIQUE: One view of the chest was acquired. COMPARISON: None. FINDINGS: There is rotation. Surgical changes and devices: None. Lungs and pleura: Hyperinflated and lucent lungs consistent with COPD. No pleural effusions or pneumothorax. Mediastinum: Mediastinal contours appear normal. Heart size is normal. Bones and chest wall: No suspicious bony lesions. Overlying soft tissues appear unremarkable. IMPRESSION: 1. No acute cardiopulmonary disease. 2. COPD. Dictated by: Ken Good M.D. on 06/05/2022 at 18:23 Approved by: Ken Good M.D. on 06/05/2022 at 18:23
--- NOTE | 2022-06-05 18:08 | PC.NURSE ---
No obvious sign of blood in vaginal/rectal area from ED RN exam. Guaic negative at ED. Physician aware.
--- NOTE | 2022-06-05 18:11 | PC.NURSE ---
POA at the bedside.
--- NOTE | 2022-06-05 18:43 | ED_ITS ---
HPI - Female Genitourinary General Chief complaint: Urogenital-Female Stated complaint: gi bleed Time Seen by Provider: 06/05/22 17:45 Source: family, EMS and other Mode of arrival: EMS History of Present Illness HPI Narrative: Patient is a 82-year-old female history of Parkinson's wheelchair-bound presenting today with blood in the depends. Thought to be possibly GI bleed her stool is guaiac negative urine is quite. A limp. She has some mild dementia POA is at bedside states that she has a little bit more confused than normal. She was just treated for bladder infection in April with Bactrim. Patient is denying any worsening pain. She has very rigid posture. No fever currently. Related Data Home Medications Medication Instructions Recorded Confirmed aspirin 325 mg tablet 325 mg PO DAILY ##0 06/15/17 02/07/19 calcium carbonate 200 mg calcium 500 mg PO DAILY ##0 08/08/17 02/07/19 (500 mg) chewable tablet (Tums) carbidopa 25 mg-levodopa 100 mg 1 tab PO TID 02/07/19 02/07/19 disintegrating tablet cholecalciferol (vitamin D3) 25 1,000 unit PO DAILY 02/07/19 02/07/19 mcg (1,000 unit) capsule (Vitamin D3) Previous Rx's Medication Instructions Recorded acetaminophen 500 mg tablet 1,000 mg PO QID PRN pain #30 tabs 02/10/19 (Tylenol Extra Strength) Allergies Allergy/AdvReac Type Severity Reaction Status Date / Time No Known Drug Allergies Allergy Verified 02/08/19 06:58 Review of Systems Review of Systems Narrative: GENERAL: Denies chills, fatigue, malaise, fever, sweats, travel HEENT: Denies sinus pain, ear pain, sore throat, difficulty swallowing, neck pain RESPIRATORY: Denies dyspnea, cough, wheezing, hemoptysis, sputum. CARDIOVASCULAR: Denies chest pain, palpitations, orthopnea, edema GASTROINTESTINAL: Denies nausea, vomiting, abdominal pain, diarrhea, constipation, melena. : See HPI MUSCULOSKELETAL: Denies weakness, joint pain, or bony pain SKIN: No rash, no erythema, no pruritus NEUROLOGIC: Denies weakness, dizziness, headache, numbness, change in speech, confusion PSYCHIATRIC: No concerning psychosocial issues. 12 point review of systems is negative except for those stated above and HPI Patient History Medical History (Updated 06/05/22 @ 20:48 by Alina Charles DO) Parkinsons Family History Father Heart disease alcohol intake frequency: 0-2 drinks per day Substance Use Type: does not use Exam Initial Vital Signs Initial Vital Signs: Vital Signs Temperature 98.3 F 06/05/22 17:56 Pulse Rate 93 H 06/05/22 17:56 Respiratory Rate 17 06/05/22 17:56 Blood Pressure 132/59 L 06/05/22 17:56 Pulse Oximetry 95 06/05/22 17:56 Oxygen Delivery Method 06/05/22 17:56 GENERAL: Alert confused 82-year-old female parkinsonian like features HEENT: Head atraumatic,EOMI, pupils reactive, patient has symmetric CARDIOVASCULAR: Regular rate and rhythm without murmurs, rubs or gallops. RESPIRATORY: Breath sounds equal bilaterally, no wheezes rales or rhonchi. ABDOMEN: Soft, nontender. Normoactive bowel sounds all 4 quadrants. No guarding or rebound. EXTREMITIES: Normal range of motion, no clubbing or edema. Neurovascularly intact NEUROLOGICAL: Alert and oriented x1 SKIN: Warm, dry, no laceration, no petechiae, no rashes or lesions. Course Orders Ordered: ED Orders 06/05/22 17:25 Blood Culture Stat Complete Blood Count AUTO DIFF Stat Comprehensive Metabolic Panel Stat Lactate (Lactic Acid) Stat Lipase Stat Partial Thromboplastin Time Stat Prothrombin Time INR Stat Troponin & CK Cardiac Panel Stat 06/05/22 17:51 XR chest 1V Stat EKG-12 Lead Stat 06/05/22 18:29 Urinalysis and Microscopic Stat Urine Culture Stat 06/05/22 18:40 Blood Culture Stat Discontinued Medications Ceftriaxone Sodium 2,000 mg/ (Sodium Chloride) 100 mls @ 200 mls/hr IV NOW ONE Stop: 06/05/22 19:52 Last Infusion: 06/05/22 20:49 Dose: 0 mls/hr Documented By: Admin: 06/05/22 20:19 Dose: 200 mls/hr Documented By: TOM Pantoprazole Sodium (Pantoprazole 40 Mg Vial) 40 mg IV NOW ONE Stop: 06/05/22 17:52 Last Admin: 06/05/22 19:26 Dose: 40 mg Documented By: RU Vital Signs Vital signs: Vital Signs - 8 hr 06/05/22 17:56 06/05/22 18:07 06/05/22 18:08 Temperature 98.3 F Pulse Rate 93 H 94 H Respiratory Rate 17 Blood Pressure 132/59 L 118/56 L Pulse Oximetry 95 97 Oxygen Delivery Method Room Air 06/05/22 18:08 06/05/22 18:30 06/05/22 18:30 Temperature Pulse Rate 93 H 99 H Respiratory Rate Blood Pressure 118/58 L Pulse Oximetry 97 98 Oxygen Delivery Method 06/05/22 19:00 06/05/22 19:30 06/05/22 20:00 Temperature Pulse Rate 97 H 97 H 93 H Respiratory Rate Blood Pressure Pulse Oximetry 97 96 95 Oxygen Delivery Method 06/05/22 20:30 06/05/22 20:59 06/05/22 20:59 Temperature Pulse Rate 94 H 94 H Respiratory Rate Blood Pressure 113/52 L Pulse Oximetry 95 94 Oxygen Delivery Method 06/05/22 21:00 Temperature Pulse Rate 95 H Respiratory Rate Blood Pressure Pulse Oximetry 95 Oxygen Delivery Method MDM - Female Genitourinary Lab Data Result diagrams: 06/05/22 17:25 06/05/22 17:25 Labs: Lab Results 06/05/22 06/05/22 06/05/22 Range/Units 17:25 17:25 17:25 WBC 5.9 (4.5-11.0) X10^3/uL RBC 4.30 (4.0-5.2) X10^6/uL Hgb 12.6 (12.0-16.0) g/dL Hct 37.3 (36-46) % MCV 86.9 (80-100) fL MCH 29.4 (26-34) PG MCHC 33.8 (30-36) % RDW 14.5 (11.6-14.8) % Plt Count 296 (150-400) X10^3/uL Neut % (Auto) 66.4 (50-75) % Lymph % (Auto) 21.4 L (25-40) % [place] % (Auto) 10.8 (3-14) % Eos % (Auto) 0.7 L (2-4) % Baso % (Auto) 0.7 (0-2) % Neut # (Auto) 3900 (1160-9702) /uL Lymph # (Auto) 1300 (8232-8533) /uL [place] # (Auto) 600 (0-900) /uL Eos # (Auto) 0 (0-450) /uL Baso # (Auto) 0 (0-100) /uL PT 12.3 (10.1-12.7) SECONDS INR 1.1 (0.9-1.3) APTT 25 L (26-36) SECONDS Sodium 138 (137-145) mmol/L Potassium 4.3 (3.4-5.1) mmol/L Chloride 105 (98-107) mmol/L Carbon Dioxide 26 (22-32) mmol/L BUN 26 H (7-17) mg/dL Creatinine 0.54 (0.52-1.04) mg/dL Estimated GFR > 60 (>60) mL/min BUN/Creatinine Ratio 48.1 H (6-22) Glucose 118 H (80-110) mg/dL Lactate (0.7-2.1) mmol/L Calcium 10.2 (8.4-10.2) mg/dL Total Bilirubin 0.7 (0.2-1.3) mg/dL AST 30 (14-36) IU/L ALT 14 (<35) IU/L Alkaline Phosphatase 106 (38-126) U/L Total Creatine Kinase 162 H (30-135) U/L CK-MB (CK-2) 1.92 (<2.37) ng/mL CK-MB (CK-2) Rel Index 1.2 L (1.5-5.0) % Troponin I < 0.012 (0.01-0.034) ng/mL Total Protein 6.7 (6.3-8.2) g/dL Albumin 3.8 (3.5-5.0) g/dL Globulin 2.9 (1.7-4.1) g/dL Albumin/Globulin Ratio 1.3 (1.0-2.8) Lipase 42 (23-300) U/L Urine Color Urine Appearance Urine pH (4.5-8.0) Ur Specific [place] (1.000-1.035) Urine Protein (Negative) Urine Glucose (UA) (Negative) g/dL Urine Ketones (NEGATIVE) Urine Occult Blood (Negative) Urine Nitrate (Negative) Urine Bilirubin (NEGATIVE) Urine Urobilinogen (0.2) E.U./dL Ur Leukocyte Esterase (NEGATIVE) Urine RBC (0-5/HPF) Urine WBC (0-5/HPF) Ur Squamous Epith Cells (0-5/HPF) Amorphous Sediment Urine Bacteria (None) Urine Mucus (Negative) Ur Culture Indicated? 06/05/22 06/05/22 Range/Units 17:25 18:29 WBC (4.5-11.0) X10^3/uL RBC (4.0-5.2) X10^6/uL Hgb (12.0-16.0) g/dL Hct (36-46) % MCV (80-100) fL MCH (26-34) PG MCHC (30-36) % RDW (11.6-14.8) % Plt Count (150-400) X10^3/uL Neut % (Auto) (50-75) % Lymph % (Auto) (25-40) % [place] % (Auto) (3-14) % Eos % (Auto) (2-4) % Baso % (Auto) (0-2) % Neut # (Auto) (0603-8680) /uL Lymph # (Auto) (6143-6515) /uL [place] # (Auto) (0-900) /uL Eos # (Auto) (0-450) /uL Baso # (Auto) (0-100) /uL PT (10.1-12.7) SECONDS INR (0.9-1.3) APTT (26-36) SECONDS Sodium (137-145) mmol/L Potassium (3.4-5.1) mmol/L Chloride (98-107) mmol/L Carbon Dioxide (22-32) mmol/L BUN (7-17) mg/dL Creatinine (0.52-1.04) mg/dL Estimated GFR (>60) mL/min BUN/Creatinine Ratio (6-22) Glucose (80-110) mg/dL Lactate 1.1 (0.7-2.1) mmol/L Calcium (8.4-10.2) mg/dL Total Bilirubin (0.2-1.3) mg/dL AST (14-36) IU/L ALT (<35) IU/L Alkaline Phosphatase (38-126) U/L Total Creatine Kinase (30-135) U/L CK-MB (CK-2) (<2.37) ng/mL CK-MB (CK-2) Rel Index (1.5-5.0) % Troponin I (0.01-0.034) ng/mL Total Protein (6.3-8.2) g/dL Albumin (3.5-5.0) g/dL Globulin (1.7-4.1) g/dL Albumin/Globulin Ratio (1.0-2.8) Lipase (23-300) U/L Urine Color Yellow Urine Appearance Cloudy Urine pH 5.0 (4.5-8.0) Ur Specific [place] >=1.030 H (1.000-1.035) Urine Protein 1+ H (Negative) Urine Glucose (UA) Negative (Negative) g/dL Urine Ketones Trace H (NEGATIVE) Urine Occult Blood 1+ H (Negative) Urine Nitrate Positive H (Negative) Urine Bilirubin Negative (NEGATIVE) Urine Urobilinogen 0.2 (0.2) E.U./dL Ur Leukocyte Esterase 2+ H (NEGATIVE) Urine RBC 1-5/hpf D (0-5/HPF) Urine WBC >100/hpf H (0-5/HPF) Ur Squamous Epith Cells 10-30 /hpf H D (0-5/HPF) Amorphous Sediment 1+ Urine Bacteria Many (>30) H (None) Urine Mucus 2+ H (Negative) Ur Culture Indicated? Specimen cultured Imaging Data Chest x-ray: Radiologist's Impression: Citlalli Mcdonald MR#: [id number] : 1940 Acct:[id number] Age/Sex: 82 / F Date of Service: 06/05/22 Loc: ED Accession Number: [id number] ?? Procedure: XR chest 1V Ordering Provider: Alina Charles D.O. PROCEDURE:? XR CHEST 1V ? INDICATIONS:? chest pain ? TECHNIQUE:? One view of the chest was acquired.? ? COMPARISON:? None. ? FINDINGS:? There is rotation. ? Surgical changes and devices:? None.? ? Lungs and pleura:? Hyperinflated and lucent lungs consistent with COPD.? No pleural effusions or pneumothorax.? ? Mediastinum:? Mediastinal contours appear normal.? Heart size is normal.? ? Bones and chest wall:? No suspicious bony lesions.? Overlying soft tissues appear unremarkable.? ? IMPRESSION:? ? 1. No acute cardiopulmonary disease. 2. COPD.? ? ? Dictated by: Ken Good M.D. on 06/05/2022 at 18:23 ? ? Approved by: Ken Good M.D. on 06/05/2022 at 18:23? ECG Data Interpretation: Sinus rhythm rate 93 [place] interval 144 QRS [address] changes no T-wave inversions MDM Narrative Medical decision making narrative: Initially thought patient was GI bleed however guaiac is negative per nursing staff. Urine is grossly positive. She has a very hard IV start and difficult to get blood. However his blood actually looks okay. Not septic, vitals are stable. At this time really does not meet any sort of admission criteria. Given IV Rocephin. Discussion with patient and DPOA who agree patient can go back home. Discharge Plan Departure Patient Disposition: Home Clinical Impression: Urinary tract infection Activity Restrictions/Additional Instructions: *You have been diagnosed with UTI *What to do: I hope you feel better soon. Antibiotic should start helping in the next 2-3 days. Please increase fluid intake and monitor *Continue to take medications as directed Keflex 500 mg twice a day for 7 days *Follow up with your primary care provider in 2-3 days or call [phone] *Return to ER if you should have increasing confusion weakness decreased intake or any new, worsening or concerning symptoms Prescriptions: No Action aspirin 325 MG tablet 325 mg PO DAILY Qty: 0 calcium carbonate [Tums] 500 MG tablet,chewable 500 mg PO DAILY Qty: 0 carbidopa-levodopa 25-100 mg tablet,disintegrating 1 tab PO TID Rx Instructions: 0800 1400 2000 cholecalciferol (vitamin D3) [Vitamin D3] 1,000 unit Capsule 1,000 unit PO DAILY acetaminophen [Tylenol Extra Strength] 500 mg tablet 1,000 mg PO QID PRN (Reason: pain) Qty: 30 0RF Referrals: Mona Lazar PA-C [Primary Care Provider] - Visit Report Forms: Patient Portal/API
--- NOTE | 2022-06-05 19:20 | PC.NURSE ---
Report received - assumed care of pt at this time - Shannan RN at bedside for U/S guided IV
[2022-06-05] MEDS: PANTOPRAZOLE 40 MG VIAL IV (19:26)
[2022-06-05 19:36] LABS: INR 1.1 (0.9-1.3); Prothrombin Time 12.3 SECONDS (10.1-12.7)
[2022-06-05 19:38] LABS: Appearance Urine UA CLOUDY; Bilirubin Urine UA NEGATIVE (NEGATIVE); Color Urine UA YELLOW; Glucose Urine UA NEGATIVE (Negative); Ketones Urine UA TRACE (NEGATIVE); Leukocyte Esterase Urine UA 2+ (NEGATIVE); Nitrite Urine UA POSITIVE (Negative); Occult Blood Urine UA 1+ (Negative); Protein Urine UA 1+ (Negative); Specific Gravity Urine UA >=1.030 (1.000-1.035); Urobilinogen Urine UA 0.2 E.U./dL (0.2)
[2022-06-05 19:39] LABS: Add Manual Diff / Slide Review NO; Basophils Absolute Auto 0 /uL (0-100); Basophils Percent Auto 0.7 % (0-2); Eosinophils Absolute Auto 0 /uL (0-450); Eosinophils Percent Auto 0.7 % (2-4); Hematocrit 37.3 % (36-46); Hemoglobin 12.6 g/dL (12.0-16.0); Lymphocytes Absolute Auto 1300 /uL (1100-4500); Lymphocytes Percent Auto 21.4 % (25-40); Mean Corpuscular HGB Conc 33.8 % (30-36); Mean Corpuscular Hemoglobin 29.4 PG (26-34); Mean Corpuscular Volume 86.9 fL (80-100); Monocytes Absolute Auto 600 /uL (0-900); Monocytes Percent Auto 10.8 % (3-14); Neutrophils Absolute Auto 3900 /uL (1500-7000); Neutrophils Percent Auto 66.4 % (50-75); PTT Partial Thromboplastin Tim 25 SECONDS (26-36); Platelet Count 296 X10^3/uL (150-400); Red Cell Distribution Width 14.5 % (11.6-14.8); White Blood Cell Count 5.9 X10^3/uL (4.5-11.0)
[2022-06-05 19:40] LABS: Alanine Aminotransferase 14 IU/L (<35); Albumin 3.8 g/dL (3.5-5.0); Albumin Globulin Ratio 1.3 (1.0-2.8); Alkaline Phosphatase 106 U/L (38-126); Aspartate Aminotransferase 30 IU/L (14-36); BUN Creatinine Ratio 48.1 (6-22); Bilirubin Total 0.7 mg/dL (0.2-1.3); Blood Urea Nitrogen 26 mg/dL (7-17); Calcium 10.2 mg/dL (8.4-10.2); Carbon Dioxide 26 mmol/L (22-32); Chloride 105 mmol/L (98-107); Creatine Kinase 162 U/L (30-135); Estimated Glomerular Filt Rate > 60 mL/min (>60); Globulin 2.9 g/dL (1.7-4.1); Glucose 118 mg/dL (80-110); HEMOLYSIS < 15 (0-50); Lipase 42 U/L (23-300); Potassium 4.3 mmol/L (3.4-5.1); Sodium 138 mmol/L (137-145); Total Protein 6.7 g/dL (6.3-8.2)
--- NOTE | 2022-06-05 19:45 | PC.NURSE ---
Lactate drawn from the Left wrist x1 attempt - no tourniquet used RT at bedside for EKG - family at bedside
[2022-06-05 19:47] LABS: Amorphous Sediment Urine 1+; Bacteria Urine Many (>30); Culture Indicated Urine Specimen Cultured; Mucus Urine 2+ (Negative); RBC Urine 1-5/HPF (0-5/HPF); Squamous Epithelial Cell Urine 10-30 /HPF (0-5/HPF); WBC Urine >100/HPF (0-5/HPF)
[2022-06-05 19:52] LABS: Troponin I < 0.012 ng/mL (0.01-0.034)
[2022-06-05 19:55] LABS: CKMB % Relative Index 1.2 % (1.5-5.0); Creatine Kinase MB 1.92 ng/mL (<2.37)
[2022-06-05] MEDS: cefTRIAXone 2,000 MG in SODIUM CHLORIDE 0.9% 100 ML 200 MG IV (20:19)
[2022-06-05 20:28] LABS: Lactate (Lactic Acid) 1.1 mmol/L (0.7-2.1)
--- NOTE | 2022-06-05 20:45 | PC.NURSE ---
MD at bedside - family present
--- NOTE | 2022-06-05 21:15 | PC.NURSE ---
Assisted to get dressed - assisted family to get patient in the car
== END 2022-06-05 21:20 | disposition home or self-care (01) ==
PROVIDERS: Emergency Provider Emergency Medicine; Family Provider Physician Assistant; PCP Physician Assistant
DX: N39.0 Urinary tract infection, site not specified (principal); R07.9 Chest pain, unspecified
CPT/HCPCS: 36415; 71045; 80053; 81001; 82550; 82553; 83605; 83690; 84484; 85025; 85610; 85730; 87040; 87077; 87086; 87186; 93005; 96365; 96375; 99283; 99284; C9113; J0696

== ENCOUNTER → 2022-08-02 14:11 | Outpatient (CLI) | payer MEDICARE, SELFPAY ==
[2019-02-07 11:42] VITALS: BMI 16.0
== END ==
PROVIDERS: Family Provider Physician Assistant; PCP Student in an Organized Health Care Education/Training Program; Referring Provider Student in an Organized Health Care Education/Training Program; Visit Provider Surgery
DX: L89.213 Pressure ulcer of right hip, stage 3 (principal); G20 Parkinson's disease; F02.80 Dementia in other diseases classified elsewhere, unspecified severity, without behavioral disturbance, psychotic disturbance, mood disturbance, and anxiety
CPT/HCPCS: 11042; 99203

== ENCOUNTER → 2022-08-09 14:16 | Outpatient (CLI) | payer MEDICARE, SELFPAY ==
[2019-02-07 11:42] VITALS: BMI 16.0
[2022-08-09 14:56] LABS: Add Manual Diff / Slide Review NO; Basophils Absolute Auto 100 /uL (0-100); Basophils Percent Auto 1.3 % (0-2); Eosinophils Absolute Auto 100 /uL (0-450); Eosinophils Percent Auto 1.9 % (2-4); Hematocrit 38.2 % (36-46); Hemoglobin 12.7 g/dL (12.0-16.0); Lymphocytes Absolute Auto 2300 /uL (1100-4500); Mean Corpuscular HGB Conc 33.2 % (30-36); Mean Corpuscular Hemoglobin 28.4 PG (26-34); Mean Corpuscular Volume 85.5 fL (80-100); Monocytes Absolute Auto 400 /uL (0-900); Monocytes Percent Auto 6.5 % (3-14); Neutrophils Absolute Auto 3800 /uL (1500-7000); Neutrophils Percent Auto 56.3 % (50-75); Platelet Count 319 X10^3/uL (150-400); Red Blood Cell Count 4.47 X10^6/uL (4.0-5.2); White Blood Cell Count 6.7 X10^3/uL (4.5-11.0)
[2022-08-09 15:10] LABS: Alanine Aminotransferase 11 IU/L (<35); Albumin 4.2 g/dL (3.5-5.0); Albumin Globulin Ratio 1.3 (1.0-2.8); Alkaline Phosphatase 71 U/L (38-126); Aspartate Aminotransferase 33 IU/L (14-36); BUN Creatinine Ratio 34.1 (6-22); Bilirubin Total 0.6 mg/dL (0.2-1.3); Blood Urea Nitrogen 15 mg/dL (7-17); Calcium 10.3 mg/dL (8.4-10.2); Carbon Dioxide 28 mmol/L (22-32); Chloride 99 mmol/L (98-107); Estimated Glomerular Filt Rate > 60 mL/min (>60); Globulin 3.3 g/dL (1.7-4.1); Glucose 86 mg/dL (80-110); HEMOLYSIS < 15 (0-50); Potassium 4.3 mmol/L (3.4-5.1); Sodium 138 mmol/L (137-145); Total Protein 7.5 g/dL (6.3-8.2)
[2022-08-09 15:14] LABS: Prealbumin 19.9 mg/dL (17.6-36.0)
== END ==
PROVIDERS: Family Provider Physician Assistant; PCP Student in an Organized Health Care Education/Training Program; Referring Provider Surgery; Visit Provider Surgery
DX: L89.213 Pressure ulcer of right hip, stage 3 (principal)
CPT/HCPCS: 36415; 80053; 84134; 85025

== ENCOUNTER → 2022-08-09 14:54 | Outpatient (CLI) | payer MEDICARE, SELFPAY ==
[2019-02-07 11:42] VITALS: BMI 16.0
== END ==
PROVIDERS: Family Provider Physician Assistant; PCP Student in an Organized Health Care Education/Training Program; Referring Provider Student in an Organized Health Care Education/Training Program; Visit Provider Surgery
DX: L89.213 Pressure ulcer of right hip, stage 3 (principal); G20 Parkinson's disease; L53.9 Erythematous condition, unspecified
CPT/HCPCS: 11042; 36415; 80053; 84134; 85025; 87070; 87075; 87077; 87147; 87186; 87205